=== PATIENT | male | born 1975 | race Hispanic/Latino ===

== ENCOUNTER 2019-10-06 23:45 | Emergency (ER) | payer SELFPAY ==
[~2019-10-06] VITALS: Ht 160 cm; Wt 49.9 kg
[~2019-10-06 23:45] MED LIST: KEFLEX500 MG PO; LEVEMIR100 UNIT/1 SC; METFORMIN HCL500 MG PO; NAPROXEN250 MG PO
[2019-10-06] MEDS ORDERED: KETOROLAC TROMETHAMINE 30 MG/ML VIAL IV STA (23:58)
[2019-10-07] MEDS ORDERED: SODIUM CHLORIDE 0.9% 1000ML 1,000 ML IV ONE
[2019-10-07] MEDS ORDERED: SODIUM CHLORIDE 0.9% 1000ML 1,000 ML ONE (00:05)
[2019-10-07 00:06] LABS: BASOPHILS % 0.2 % (0.0-1.0); EOSINOPHILS # (AUTO) 0.1 (0.0-0.4); EOSINOPHILS % 1.2 % (0.0-6.0); HEMATOCRIT 40.9 % (38.2-49.6); HEMOGLOBIN 15.2 g/dL (14.0-18.0); LYMPHOCYTES # (AUTO) 2.9 (1.0-3.2); LYMPHOCYTES % 29.4 % (18.0-39.1); MEAN CORPUSCULAR HEMOGLOBIN 30.6 pg (28-32); MEAN CORPUSCULAR HGB CONC 37.2 g/dL (31-35); MEAN CORPUSCULAR VOLUME 82.5 fL (81-99); MONOCYTES # (AUTO) 0.8 (0.2-0.8); MONOCYTES % 7.7 % (4.4-11.3); NEUTROPHILS # (AUTO) 6.1 (2.1-6.9); NEUTROPHILS % 61.2 % (38.7-80.0); PLATELET COUNT 251 x10e3/uL (140-360); RED BLOOD COUNT 4.96 x10e6/uL (4.3-5.7)
[2019-10-07] MEDS ORDERED: IOPAMIDOL 370 MG/ML 200 ML INFUS..BTL INJ ONE (00:16)
[2019-10-07] MEDS ORDERED: DIATRIZOATE MEGL/DIATRIZOA SOD 30 ML BTL PO ONE (00:16)
[2019-10-07] MEDS ORDERED: SODIUM CHLORIDE 0.9% 50ML 50 ML ONE (00:16)
[2019-10-07 00:20] LABS: ALANINE AMINOTRANSFERASE 16 IU/L (0-55); ALBUMIN 3.5 g/dL (3.5-5.0); ALBUMIN/GLOBULIN RATIO 1.2 (0.8-2.0); ALKALINE PHOSPHATASE 68 IU/L (40-150); ANION GAP 12.1 mmol/L (8-16); BLOOD UREA NITROGEN 13 mg/dL (7-26); BUN/CREATININE RATIO 15 (6-25); CALCIUM 8.8 mg/dL (8.4-10.2); CARBON DIOXIDE 26 mmol/L (22-29); CHLORIDE 98 mmol/L (98-107); CREATININE, SERUM 0.85 mg/dL (0.72-1.25); EST GLOMERULAR FILTRATION RATE > 60 ML/MIN (60-); POTASSIUM 4.1 mmol/L (3.5-5.1); SODIUM 132 mmol/L (136-145)
[2019-10-07 00:24] LABS: GLUCOSE 419 mg/dL (74-118)
[2019-10-07] MEDS ORDERED: INSULIN REGULAR, HUMAN 100 UNIT/1 ML 3ML VIAL SQ ONE (00:30)
[2019-10-07 00:40] LABS: AMYLASE 82 U/L (25-125); LIPASE 82 U/L (8-78)
[2019-10-07 00:46] LABS: BILIRUBIN,URINE NEGATIVE (NEGATIVE); CLARITY,URINE CLEAR (CLEAR); COLOR,URINE YELLOW (YELLOW); KETONES,URINE 1+ (NEGATIVE); LEUKOCYTE ESTERASE ,URINE NEGATIVE (NEGATIVE); NITRITE,URINE NEGATIVE (NEGATIVE); PROTEIN,URINE DIPSTICK NEGATIVE (NEGATIVE); URINE UROBILINOGEN 0.2 mg/dL (0.2 - 1)
[2019-10-07 00:50] LABS: BACTERIA,URINE FEW /HPF; EPITHELIAL CELLS,URINE FEW /LPF; RBC,URINE 0-5 /HPF (0-5); YEAST,URINE MANY
[2019-10-07] MEDS ORDERED: MORPHINE SULFATE 2 MG/ML SYR 1ML IV STA (01:01)
[2019-10-07] MEDS ORDERED: ONDANSETRON HCL INJ 2MG/ML 2ML 2 MG/ML VIAL IV STA (01:01)
[2019-10-07] MEDS ORDERED: MORPHINE SULFATE INJ 4 MG/ML INJ 1ML ONE (01:08)
--- NOTE | 2019-10-07 01:24 | NUR ---
PT RETURNED TO ER AT THIS TIME. PT IS SITTING UP IN STRETCHER. BED IS LOCKED AND IN LOWEST POSITION. CALL LIGHT IS IN REACH IF IN NEED OF ASSISTANCE.
--- NOTE | 2019-10-07 02:10 | Diagnostic Imaging Report ---
EXAM: CT Abdomen and Pelvis WITH contrast INDICATION: llq pain ^Y COMPARISON: None. TECHNIQUE: Abdomen and pelvis were scanned utilizing a multidetector helical scanner from the lung base to the pubic symphysis after administration of IV contrast. Coronal and sagittal reformations were obtained. Routine protocol was performed. Scan was performed when during portal venous phase. IV CONTRAST: 100 mL of Isovue 370 ORAL CONTRAST: Gastrografin COMPLICATIONS: None RADIATION DOSE: Total DLP: 184 mGy*cm Estimated effective dose: (DLP x 0.015 x size factor) mSv CTDIvol has been reviewed. It is below the limits set by the Radiation Protocol Committee (RPC). Dose modulation, iterative reconstruction, and/or weight based adjustment of the mA/kV was utilized to reduce the radiation dose to as low as reasonably achievable. FINDINGS: LINES and TUBES: None. LOWER THORAX: Unremarkable HEPATOBILIARY: No focal hepatic lesions. No biliary ductal dilation. GALLBLADDER: No radio-opaque stones or sludge. No wall thickening. SPLEEN: No splenomegaly. PANCREAS: No focal masses or ductal dilatation. ADRENALS: No adrenal nodules KIDNEYS/URETERS: Kidneys enhance symmetrically. No hydronephrosis. No cystic or solid mass lesions. No stones. GI TRACT: No abnormal distention, wall thickening, or evidence of bowel obstruction. Appendix is normal. PELVIC ORGANS/BLADDER: Unremarkable. LYMPH NODES: No lymphadenopathy. VESSELS: Unremarkable. PERITONEUM / RETROPERITONEUM: No free air or fluid. BONES: Unremarkable. SOFT TISSUES: Unremarkable. IMPRESSION: No acute CT abnormality in the abdomen or pelvis. Signed by: Marcos Sullivan DO on 10/07/2019 2:06 AM
[2019-10-07 02:21] VITALS: BP 134/100
== END 2019-10-07 02:36 | disposition home or self-care (01) ==
LOC: ER 23:45
DX: R10.32 Left lower quadrant pain (principal); N30.90 Cystitis, unspecified without hematuria; E11.65 Type 2 diabetes mellitus with hyperglycemia; E78.5 Hyperlipidemia, unspecified; D64.9 Anemia, unspecified
CPT/HCPCS: 36415; 74177; 80053; 81001; 82150; 82948; 83690; 85025; 99284; J1885; J2270; J2405; J7030; Q9967

== ENCOUNTER 2019-12-14 21:23 | Emergency (ER) | payer SELFPAY ==
[~2019-12-14] VITALS: Ht 160 cm; Wt 49.9 kg
--- OUTSIDE RECORDS SUMMARY | 2019-12-14 21:25 | XMS REPORT | Clinical Summary ---
Author Author [facility] Organization [facility] Address Unknown Phone Unavailable Care Team Providers Care Java Developer Name Role Phone Moreno Flores MD PCP Allergies Comments Active Allergy Reactions Severity Noted Date Metformin Diarrhea 11/12/2017 Medications End Date Status Medication Sig Dispensed Refills Start Date Active blood glucose Use as 1 Kit 0 meterIndications: DM directed. 0 (diabetes mellitus) Active simvastatin (ZOCOR) 40 mg Take 1 Tab by 30 Tab 2 tabletIndications: mouth at 0 Hyperlipidemia bedtime. For cholesterol Active zolmitriptan (ZOMIG) 5 mg Take 1 Tab by 10 Tab 0 tabletIndications: mouth as 0 Headache(784.0) needed for Migraine. Active PEDOMETERIndications: 1 Device 0 01 Diabetes mellitus type 0 II, controlled, Hyperlipidemia, Obesity, unspecified Active blood glucose meter Use as 1 Kit 0 (PRECISION XTRA directed.. 8 GLUCOMETER)Indications: Poorly controlled type 2 diabetes mellitus Active lancets 28 Use 2 times 100 Each 1 gaugeIndications: Poorly weekly as 8 controlled type 2 directed. diabetes mellitus Active nystatin (MYCOSTATIN) Apply to 30 g 0 10/13 topical creamIndications: affected area 8 Penile lesion 2 times daily. Active blood glucose (PRECISION Check blood 50 Each 3 0 XTRA TEST STRIPS) test glucose 2 8 stripsIndications: Poorly times daily. controlled type 2 diabetes mellitus Active lancets 28 Use 2 times 100 Each 11 gaugeIndications: Type 2 daily as 8 diabetes mellitus with directed. hemoglobin A1c goal to be determined Active INSULIN SYRINGE 0.5mL Use to inject 1 Box 0 30GX5/16" (ULTRA COMFORT) medication 3 8 syringe-needleIndications times daily. : Poorly controlled type Use a new 2 diabetes mellitus syringe each time. Active aspirin 81 mg delayed Take 1 tablet 90 tablet 0 release by mouth 8 tabletIndications: Poorly daily. controlled type 2 diabetes mellitus Active lisinopril (PRINIVIL) 10 Take 1 tablet 90 tablet 1 mg tabletIndications: by mouth 8 Poorly controlled type 2 daily. diabetes mellitus Active INSULIN SYRINGE 0.5mL Use to inject 100 Each 0 30GX5/16" (ULTRA COMFORT) medication 3 8 syringe-needleIndications times daily. : Poorly controlled type Use a new 2 diabetes mellitus syringe each time. Active blood glucose test Use 3 times 100 Each 11 01 stripsIndications: Poorly daily. 8 controlled type 2 diabetes mellitus Active fluocinonide (LIDEX) 0.05 Apply to 120 mL 11 % external affected area 8 solutionIndications: Acne 2 times daily necrotica as needed (rash/itching ) For scalp, allow to air dry. Avoid face, groin, armpits. Active clindamycin (CLEOCIN-T) 1 Apply to 60 mL 0 % external affected area 8 solutionIndications: Acne 2 times daily necrotica Apply to NEW sores; for old sores/scabs, apply vaseline. Active glipiZIDE (GLUCOTROL) 5 Take 2 360 tablet 1 mg tabletIndications: tablets by 0 Poorly controlled type 2 mouth 2 times diabetes mellitus daily (before meals). Active linaGLIPtin (TRADJENTA) 5 Take 1 tablet 90 tablet 1 mg tabletIndications: by mouth 0 Inadequately controlled daily. diabetes mellitus 05/01/2020 Active insulin detemir U-100 Inject 45 27 Pen 1 10/13 (LEVEMIR FLEXTOUCH) 100 units under 0 unit/mL (3 mL) the skin PenIndications: Poorly every morning controlled type 2 and 45 units diabetes mellitus every evening. Active insulin REGULAR 100 Inject 15 30 mL 0 unit/mL Units under 0 injectionIndications: the skin 2 Poorly controlled type 2 times daily diabetes mellitus (before meals). Active pen needle, diabetic 31 Inject under 1 Box 0 0 gauge x 3/16" the skin 0 needlesIndications: daily. Poorly controlled type 2 diabetes mellitus Active dicyclomine (BENTYL) 20 Take 20 mg by 0 mg tablet mouth 4 times daily. Active metoclopramide (REGLAN) Take 10 mg by 0 10 mg tablet mouth 4 times daily. Active blood glucose test 1 Each 3 100 Each 6 02 stripsIndications: Poorly times daily 0 controlled type 2 Use as diabetes mellitus directed.. Active ketoconazole (NIZORAL) 2 Apply to 120 mL 11 0 % shampooIndications: scalp in 0 Acne necrotica shower. Lather. Leave in for 5 minutes. Rinse out. Lather dove conditioner.. (3 times a week) 11/03/2019 Discontinued (Reorder) pen needle, diabetic Inject under 1 Box 0 02/13 (TRUEPLUS PEN NEEDLE) 31 the skin 8 gauge x 3/16" daily. needlesIndications: Poorly controlled type 2 diabetes mellitus 11/03/2019 Discontinued (Reorder) insulin REGULAR 100 Inject 15 30 mL 0 unit/mL Units under 8 injectionIndications: the skin 2 Poorly controlled type 2 times daily diabetes mellitus (before meals). 11/03/2019 Discontinued (Reorder) blood glucose test 1 Each 3 100 Each 6 stripsIndications: Poorly times daily 8 controlled type 2 Use as diabetes mellitus directed.. 11/03/2019 Discontinued (Reorder) ketoconazole (NIZORAL) 2 Apply to 120 mL 11 1 % shampooIndications: scalp in 8 Acne necrotica shower. Lather. Leave in for 5 minutes. Rinse out. Lather dove conditioner.. (3 times a week) 11/03/2019 Discontinued (Reorder) linagliptin (TRADJENTA) 5 Take 1 tablet 90 tablet 1 mg tabletIndications: by mouth 9 Inadequately controlled daily. diabetes mellitus 11/03/2019 Discontinued (Reorder) insulin detemir U-100 Inject 45 3 Month 1 07/14 (LEVEMIR FLEXTOUCH) 100 units under Supply 9 unit/mL (3 mL) the skin PenIndications: Poorly every morning controlled type 2 and 45 units diabetes mellitus every evening. 11/03/2019 Discontinued (Reorder) glipiZIDE (GLUCOTROL) 5 Take 2 360 tablet 1 mg tabletIndications: tablets by 9 Poorly controlled type 2 mouth 2 times diabetes mellitus daily (before meals). 11/03/2019 tropicamide (MYDRIACYL) Instill 1 15 mL 0 0.5 % ophthalmic Drop in each 0 solutionIndications: eye once as Poorly controlled type 2 needed for up diabetes mellitus to 1 dose (for poor retina scan image). Active Problems Problem Noted Date Inadequately controlled diabetes mellitus 04/28/2018 DMII Hyperlipidemia LLQ abdominal pain Encounters Care Team Description Date Type Specialty Moreno Flores MD Patient left without being seen (Primary Dx) 11/24/2019 Telephonic Family Practice Encounter Moreno Flores MD Poorly controlled type [address] [facility] (Primary Dx); Abdominal pain, unspecified abdominal location; Inadequately controlled diabetes mellitus 11/03/2019 Telephonic Family Practice Encounter Moreno Flores MD Acne necrotica 11/03/2019 Refill Family Practice Moreno Flores MD Poorly controlled type 2 diabetes [facility] 11/03/2019 Refill Family Practice Juan Luis Pérez MD Generalized abdominal pain (Primary Dx); LLQ abdominal pain; Strain of abdominal wall, initial encounter; Hyperglycemia 09/20/2019 Emergency Emergency Medicine after 12/13/2018 Immunizations Name Administration Dates Next Due Influenza Vaccine 05/23/2010 Influenza, 08/25/2018 (Deferred: Patie nt Refused) Vaccine<FLUCELVAX>(Multi- Dose) PPV 23 Pneumococcal 05/23/2010 Polysaccaride Td Tetanus, diphtheria 03/23/2009 Toxoids Vaccine Family History Medical History Relation Name Comments Hypertension Maternal Grandfather Psychiatry Maternal Grandfather Arthritis Maternal Grandmother Hypertension Maternal Grandmother Relation Name Status Comments Brother Alive 3 brothers Brother Alive Brother Alive Brother Alive Daughter Alive Father Alive Maternal Grandfather Alive Maternal Grandmother Alive Mother Alive Paternal Grandfather Paternal Grandmother Sister Alive 1 sister Son Alive Social History Date Tobacco Use Types Packs/Day Years Used Current Every Day Smoker Smokeless Tobacco: Never Used Tobacco Cessation: Counseling Given: No Drinks/Week oz/Week Comments Alcohol Use No Food Insecurity Answer Date Recorded Within the past 12 months, you worried that your Never joyce e 11/07/2017 food would run out before you got money to buy more. Within the past 12 months, the food you bought Never true 11/07/2017 just didn't last and you didn't have mo tonia to get more. Sex Assigned at Date Recorded Not on file Industry Job Start Date Occupation Not on file Not on file Not on file Travel End Travel History Travel Start No recent travel history available. Date Recorded COVID-19 Exposure Response 11/18/2019 1:52 PM CDT In the last month, have you been in contact with No / Unsure someone who was confirmed or suspected to have Coronavirus / COVID-19? Last Filed Vital Signs Reading Time Taken Comments Vital Sign 119/87 09/20/2019 10:52 AM CDT Blood Pressure 85 09/20/2019 10:52 AM CDT Pulse 36.8 C (98.2 F) 09/20/2019 10:52 AM CDT Temperature 18 09/20/2019 10:52 AM CDT Respiratory Rate 100% 09/20/2019 10:52 AM CDT Oxygen Saturation - - Inhaled Oxygen Concentration 50.5 kg (111 lb 5 oz) 09/20/2019 9:20 AM CDT Weight 160 cm (5' 3") 09/20/2019 9:20 AM CDT Height 19.72 09/20/2019 9:20 AM CDT Body Mass Index Plan of Treatment Care Team Description Date Type Specialty Moreno Flores MD [address] [place] [address]. [place] [address] [phone] in clinic visit needed 12/15/2019 Office Visit Family Practice Health Maintenance Due Date Last Done Comments DM Retinal Exam (Yearly) 11/21/2018 11/21/2017 DM Foot Exam (Yearly) 12/22/2018 12/22/2017, 12/12 IMM Influenza Seasonal 04/13/2020 Oct to September (>/= 19 yrs) DM HGBA1C (Yearly) 11/03/2020 11/04/2019, 018, 05/04/2018, Additional history exists Goals Goal Patient Associated Recent Progress Patient-Stat Aut hor Goal Type Problems ed? Eat Healthy Lifestyle No Obrien, Joaquin Shalonda, big data admin Comments Procedure Name Priority Date/Time Associated Diag nosis HEPATITIS PANEL Routine 11/04/2019 Abdominal pain , 11:49 AM CDT unspecified abdominal location HIV-1/HIV-2 ROUTINE Routine 11/04/2019 Abdominal pain, SCREENING 11:49 AM CDT unspecified abdomin al location HEMOGLOBIN A1C Routine 11/04/2019 Poorly controll ed type 2 11:49 AM CDT diabetes mellitus Abdominal pain, unspecified abdominal location LIPID PROFILE Routine 11/04/2019 Poorly controll ed type 2 11:49 AM CDT diabetes mellitus Abdominal pain, unspecified abdominal location BASIC METABOLIC PANEL Routine 11/04/2019 Poorly c ontrolled type 2 11:49 AM CDT diabetes mellitus Abdominal pain, unspecified abdominal location LIVER PROFILE Routine 11/04/2019 Poorly controll ed type 2 11:49 AM CDT diabetes mellitus Abdominal pain, unspecified abdominal location CT ABDOMEN AND PELVIS STAT 09/20/2019 Generali zed abdominal CONTRAST 12:12 PM CDT pain CBC STAT 09/20/2019 11:13 AM CDT CBC/DIFF STAT 09/20/2019 11:13 AM CDT LIPASE STAT 09/20/2019 10:48 AM CDT LIVER PROFILE STAT 09/20/2019 10:48 AM CDT CREATININE POC Routine 09/20/2019 10:42 AM CDT BMP POC Routine 09/20/2019 10:38 AM CDT after 12/13/2018 Results * HIV-1/HIV-2 Routine Screening (11/04/2019 11:49 AM CDT) HIV-1/HIV-2 Negative Negative [facility] Specimen Blood Performing Organization Address City/State/Zipcode Ph one Number [facility] [address] [place] [address] * Hemoglobin A1C (11/04/2019 11:49 AM CDT) Hemoglobin A1c 12.2 (H) 4.3 - 6.1 % [facility] Estimated 303 (H) 70 - 110 mg/dL [facility] Average Glucose [facility] Specimen Blood Performing Organization Address [facility] one Number [facility] [address] [place] [address] * Liver Profile (11/04/2019 11:49 AM CDT) Only the most recent of 2 results within the time period is included. Total Protein 6.8 6.0 - 8.3 g/dL [facility] Bilirubin, 0.7 0.2 - 1.2 mg/dL [facility] Total [facility] Alkaline 67 34 - 104 U/L [facility] Phosphatase [facility] AST 13 13 - 39 U/L [facility] Direct 0.1 0.0 - 0.2 mg/dL [facility] Bilirubin [facility] ALT 13 7 - 52 U/L [facility] Albumin 4.4 4.2 - 5.5 g/dL [facility] Specimen Blood Performing Organization Address [facility] one Number [facility] [address] [place] [address] * Lipid Profile (11/04/2019 11:49 AM CDT) Cholesterol 241.0 (H) <=200.0 mg/dL [facility] Triglyceride 142 <150 mg/dL [facility] HDL 51.0 See Reference Range [facility] Narrative. mg/dL [facility]ATORY LDL 162 (H) <100 mg/dL [facility] Comment: [facility] Optimal: < 100.0 mg/dL Near Optimal: 120-129 mg/dL Borderline: 130-159 mg/dL High: 160-189 mg/dL Very High: >=190 mg/dL Patient No [facility] Fasting? LABORAT[facility] Specimen Blood Narrative Performed At Patient is not fasting. For a triglyceride result gre ater than 440 mg/dL, [facility] consider re-testing when the patient is in a fasting state. Performing Organization Address [facility] one Number [facility] [address] [place] [address] * Hepatitis Panel (11/04/2019 11:49 AM CDT) Hep C Vir Ab Negative Negative [facility] IgG [facility] Hep B Surface Negative Negative [facility] Ag [facility] Hep A Vir Ab Negative Negative [facility] IgM [facility] Hep B Core Ab Negative Negative [facility] IgM [facility] Specimen Blood Performing Organization Address [facility] one Number [facility] [address] [place] [address] * Basic Metabolic Panel (11/04/2019 11:49 AM CDT) Sodium 135 (L) 136 - 145 mmol/L [facility] Potassium 3.9 3.5 - 5.1 mmol/L [facility] Chloride 95 (L) 98 - 107 mmol/L [facility] CO2 31 21 - 31 mmol/L [facility] Urea Nitrogen 12.0 7.0 - 25.0 mg/dL [facility] Creatinine 0.5 (L) 0.7 - 1.3 mg/dL [facility] Glucose 284 (H) 70 - 110 mg/dL [facility] Calcium 10.2 8.6 - 10.3 mg/dL [facility] GFR, Estimated >90 >=90 mL/min/1.73 m2 [facility] Anion Gap 9 5 - 16 mmol/L [facility] Specimen Blood Performing Organization Address [facility] one Number [facility] [address] [place] [address] * CT ABDOMEN AND PELVIS CONTRAST (09/20/2019 12:12 PM CDT) Specimen Impressions Performed At IMPRESSION: [facility] No acute CT finding. Signed By: Misael Daniel MD, 09/20/2019 12:43 PM Narrative Performed At TECHNIQUE: [facility] CT of the abdomen and pelvis WITH intra venous contrast. The abdomen and pelvis were scanned utilizing a multide tector helical scanner from the diaphragm to the lesser trochanter afte r the IV administration of 100 cc of omnipaque 300 and the oral administr ation of none. Coronal and sagittal reformations were obtained. COMPARISON: None available. INDICATION: Abdominal pain DISCUSSION: LOWER THORAX: Normal. HEPATOBILIARY: No focal hepatic lesions . No biliary ductal dilatation. SPLEEN: No splenomegaly. PANCREAS: No focal masses or ductal dil atation. ADRENALS: No adrenal nodules. KIDNEYS/URETERS: No hydronephrosis, sto reilly, or solid mass lesions. PELVIC ORGANS/BLADDER: Unremarkable. PERITONEUM / RETROPERITONEUM: No free a ir or fluid. LYMPH NODES: No lymphadenopathy. VESSELS: Unremarkable. GI TRACT: No distention or wall thicken ing. The appendix is normal. BONES AND SOFT TISSUES: Unremarkable. Procedure Note Interface, Rad/Mammog In - 09/20/2019 12:48 PM CDT TECHNIQUE: CT of the abdomen and pelvis WITH intravenous contrast. The abdomen and pelvis were scanned utilizing a multidetector helical scanner from the diaphragm to the lesser trochanter after the IV administration of 100 cc of omnipaque 300 and the oral administration of none. Coronal and sagittal reformations were obtained. COMPARISON: None available. INDICATION: Abdominal pain DISCUSSION: LOWER THORAX: Normal. HEPATOBILIARY: No focal hepatic lesions. No biliary ductal dilatation. SPLEEN: No splenomegaly. PANCREAS: No focal masses or ductal dilatation. ADRENALS: No adrenal nodules. KIDNEYS/URETERS: No hydronephrosis, stones, or solid mass lesions. PELVIC ORGANS/BLADDER: Unremarkable. PERITONEUM / RETROPERITONEUM: No free air or fluid. LYMPH NODES: No lymphadenopathy. VESSELS: Unremarkable. GI TRACT: No distention or wall thickening. The appendix is normal. BONES AND SOFT TISSUES: Unremarkable. IMPRESSION IMPRESSION: No acute CT finding. Signed By: Misael Dainel MD, 09/20/2019 12:43 PM Performing Organization Address City/State/Zipcode Ph one Number SMS * CBC/Diff (09/20/2019 11:13 AM CDT) WBC 9.3 4.5 - 12.0 K/uL [facility] RBC 5.11 4.60 - 6.20 M/uL [facility] Hemoglobin 15.5 14.0 - 18.0 g/dL [facility] Hematocrit 43.0 40.0 - 54.0 % [facility] MCV 84.1 82.0 - 92.0 fL [facility] MCH 30.3 27.0 - 31.0 pg [facility] MCHC 36.0 32.0 - 36.0 g/dL [facility] RDW 36.5 35.1 - 43.9 fL [facility] Platelet 229 150 - 400 K/uL [facility] Mean Platelet 10.8 9.4 - 12.4 fL [facility] Volume [facility] Percent NRBC 0.0 % [facility] Neutrophil 68.5 (H) 34.0 - 67.9 % [facility] Lymphs 26.2 21.8 - 50.0 % [facility] Monocytes 4.6 (L) 5.3 - 12.0 % [facility] Eos 0.2 (L) 0.8 - 5.0 % [facility] Basos 0.2 0.2 - 1.2 % [facility] Immature 0.3 0.0 - 0.5 % [facility] Granulocytes [facility] Neutrophils 6.36 (H) 1.78 - 5.36 K/uL [facility] (Absolute) LABOR[facility]ORY Lymphs 2.44 1.32 - 3.57 K/uL [facility] (Absolute) [facility] Monocytes(Absol 0.43 0.30 - 0.82 K/uL [facility] mesha) LABORATORY Eos (Absolute) 0.02 (L) 0.04 - 0.54 K/uL [facility] Baso (Absolute) 0.02 0.01 - 0.08 K/uL [facility] Immature Grans 0.03 0.00 - 0.03 K/uL [facility] (Abs) [facility] Absolute NRBC 0.00 K/uL [facility] Specimen Blood Performing Organization Address [facility] one Number [facility] [address] [place] [address] [phone] * Lipase (09/20/2019 10:48 AM CDT) Pathologist [facility] Lipase 16 11 - 82 U/L [facility] Specimen Blood Performing Organization Address [facility] one Number [facility] [address] [place] [address] * POCT CREATININE POC docked device (09/20/2019 10:42 AM CDT) Creatinine POC 0.4 (L)Comment: Physician 0.6 - 1.3 mg/dL [facility] Notified [facility] GFR, Estimated >90 >=90 mL/min/1.73 m2 [facility] Specimen Blood, venous Performing Organization Address [facility]/Zipcode Ph one Number [facility] [address] [place] [address] * POCT BMP POC docked device (09/20/2019 10:38 AM CDT) Sodium POC 134 (L) 136 - 145 mmol/L [facility] Potassium POC 3.9 3.5 - 5.1 mmol/L [facility] Chloride POC 96 (L) 98 - 107 mmol/L [facility] TCO2 POC 29Comment: Physician Notified 21 - 32 mmol/L [facility] Urea Nitrogen 12 7 - 18 mg/dL [facility] POC [facility] Glucose POC 292 (H) 74 - 106 mg/dL [facility] Hemoglobin POC 15.6 12 - 16 g/dL [facility] Hematocrit POC 46.0 37.0 - 47.0 % [facility] Specimen Blood, venous Performing Organization Address City/State/Zipcode Ph one Number [facility] [address] [place] [address] [phone] after 12/13/2018 Insurance Type Payer Benefit Subscriber ID Effective Phone Address Plan / Dates Group [facility] xxxxxx 2019-3 [id number] [address] [employer] / [id number] [address] [place], [place] [phone] [facility] [employer] [employer] xxxxxx 2019-3 [address] / [place] [address]
--- OUTSIDE RECORDS SUMMARY | 2019-12-14 21:26 | XMS REPORT | Continuity of Care Document ---
Author Author [facility] t Organization [facility] Address [address] [place] [address] Phone Unavailable Care Team Providers Care Jira Developer Name Role Phone NO, PCP PCP Unavailable Mark JENKINS, T Moreno Attphys Nilson CERDA Attphys Unavailable Elisa JENKINS, R Juan Luis Attphys Payers Payer Name Policy Type Policy Number Effective Date Expiration Date S [facility] [employer] [place] FAMI LY PLANNING [id number] [address], [place] [address] xxxxxx 2019 00:00:00 2020 23:59:59 Miguel [facility] PLANFINANCIAL ASSISTANCE PROGRAMxxx [id number] [place] [address] xxxxxx 2019 00:00:00 10-10 23:59:59 [facility] Self Pay [facility] Problems Condition Name Condition Details Condition Category Status Onset Date Resolution Date Last Treatment Date Treating Clinician Comments Source Scalp cyst Scalp cyst Problem Active C HI [facility] DMII DMII Disease Active [facility] alth Hyperlipidemia Hyperlipidemia Disease Active [facility] LLQ abdominal pain LLQ abdominal pain Disease Active [facility] Allergies, Adverse Reactions, Alerts Allergy Name Allergy Type Status Severity Reaction(s) Onset Date Inacti ve Date Treating Clinician Comments Source No Known Allergies DA Active U 2019-11-30 00:00:00 [facility] metformin DA Active U 2019-11-30 00:00:00 [facility] No Known Allergies DA Active U 2019-11-22 00:00:00 [facility] Metformin Allergy to Substance Active Moderate constipation 10-05 00:00:00 [facility] No Known Allergies DA Active U 2018-08-09 00:00:00 [facility] No Known Allergies DA Active U 2018-04-23 00:00:00 [facility] No Known Allergies DA Active U 2018-03-25 00:00:00 [facility] No Known Allergies DA Active U 2017-11-29 00:00:00 [facility] Metformin Propensity to adverse reactions to drug Active Diarrhea 2017-11-12 00:00:00 [facility] Family History Family Member Diagnosis Comments Start Date Stop Date Source Maternal grandfather Hypertension [facility] Maternal grandfather Psychiatry [facility] Maternal grandmother Arthritis [facility] Maternal grandmother Hypertension [facility] Social History Social Habit Start Date Stop Date Quantity Comments Source Sex Assigned [facility] Exposure to SARS-CoV-2 (event) Not sure [facility] Alcohol intake 2019-11-03 00:00:00 2019-11-03 00:00:00 [facility] History SDOH Food Worry 2017-11-07 00:00:00 2017-11-07 00:00:00 1 [facility] SDOH Food Scarcity 2017-11-07 00:00:00 2017-11-07 00:00:00 1 [facility] Smoking Status Start Date Stop Date Source Current every day smoker 2019-11-03 00:00:00 [facility] Medications Ordered Medication Name Filled Medication Name Start Date Stop Da te Current Medication? Ordering Clinician Indication Dosage Frequency Signature (SIG) Comments Components Source dicyclomine (BENTYL) 20 mg tablet 2019-11-24 11:35:13 Yes 20mg Take 20 mg by mouth 4 times daily. [facility] metoclopramide (REGLAN) 10 mg tablet 2019-11-24 11:35:13 Ye s 10mg Take 10 mg by mouth 4 times daily. [facility] blood glucose test strips 2019-11-04 00:00:00 Yes Poorly controlled type 2 diabetes mellitus 1{each} 1 Each 3 times daily Use as directed.. [facility] ketoconazole (NIZORAL) 2 % shampoo 2019-11-04 00:00:00 Y es Acne necrotica Apply to scalp in shower. La ther. Leave in for 5 minutes. Rinse out. Lather dove conditioner.. (3 times a week) [facility] glipiZIDE (GLUCOTROL) 5 mg tablet 2019-11-03 00:00:00 Yes Poorly controlled type 2 diabetes mellitus 10mg Q.5D Take 2 tablets by mouth 2 times daily (before meals). [facility] linaGLIPtin (TRADJENTA) 5 mg tablet 2019-11-03 00:00:00 Yes Inadequately controlled diabetes mellitus 5mg QD Take 1 tablet by mouth daily. [facility] insulin REGULAR 100 unit/mL injection 2019-11-03 00:00:00 Yes Poorly controlled type 2 diabetes mellitus 15U Q.5D Inje ct 15 Units under the skin 2 times daily (before meals). [facility] corona pen needle, diabetic 31 gauge x 3/16" needles 2019-11-03 00: 00:00 Yes Poorly controlled type 2 diabetes mellitus QD Inject unde r the skin daily. [facility] insulin detemir U-100 (LEVEMIR FLEXTOUCH) 100 unit/mL (3 mL) Pen 2019-11-03 00:00:00 2020-05-01 23:59:00 Yes Poorly controlled type 2 di abetes mellitus Inject 45 units under the skin every morning and 45 units ever y evening. [facility] tropicamide (MYDRIACYL) 0.5 % ophthalmic solution 2019-11-03 00:00:00 2019-11-03 23:59:00 No Poorly controlled type 2 diabetes gloria itus 1[drp] Instill 1 Drop in each eye once as needed for up to 1 dose (for poor retina scan image). [facility] glipiZIDE (GLUCOTROL) 5 mg tablet 2018-08-25 00:00:00 2019 00:00:00 No Poorly controlled type 2 diabetes mellitus 10mg Q.5D Take 2 tablets by mouth 2 times daily (before meals). [facility] linagli[facility] (TRADJENTA) 5 mg tablet 2018-07-30 00:00:0 0 2019-11-03 00:00:00 No Inadequately controlled diabetes mellitus 5mg QD Take 1 tablet by mouth daily. [facility] insulin detemir U-100 (LEVEMIR FLEXTOUCH) 100 unit/mL (3 mL) Pen 2018-07-30 00:00:00 2019-11-03 00:00:00 No Poorly controlled type 2 di abetes mellitus Inject 45 units under the skin every morning and 45 units ever y evening. [facility] fluocinonide (LIDEX) 0.05 % external solution 2018-06-09 00: 00:00 Yes Acne necrotica Apply to affected ar ea 2 times daily as needed (rash/itching) For scalp, allow to air dry. Avoid face, groin, armpits. [facility] clindamycin (CLEOCIN-T) 1 % external solution 2018-06-09 00: 00:00 Yes Acne necrotica Q.5D Apply to affected ar ea 2 times daily Apply to NEW sores; for old sores/scabs, apply vaseline. [facility] ketoconazole (NIZORAL) 2 % shampoo 2018-06-09 00:00:00 202 00:00:00 No Acne necrotica Apply to scalp i n shower. Lather. Leave in for 5 minutes. Rinse out. Lather dove conditioner.. (3 times a week) [facility] insulin REGULAR 100 unit/mL injection 2018-04-28 00:00 :00 2019-11-03 00:00:00 No Poorly controlled type 2 diabetes mellitus 15U Q.5D Inject 15 Units under the skin 2 times daily (before meals). [facility] blood glucose test strips 2018-04-28 00:00:00 2019-11-03 00: 00:00 No Poorly controlled type 2 diabetes mellitus 1{each} 1 Ea ch 3 times daily Use as directed.. [facility] blood glucose test strips 2018-03-17 00:00:00 Yes Poorly controlled type 2 diabetes mellitus Use 3 times daily. [facility] pen needle, diabetic (TRUEPLUS PEN NEEDLE) 31 gauge x 3/16" needles 2018-03-12 00:00:00 2019-11-03 00:00:00 No Poorly controlled type 2 di abetes mellitus QD Inject under the skin daily. [facility] INSULIN SYRINGE 0.5mL 30GX5/16" (ULTRA COMFORT) syringe-need le 2017-12-22 00:00:00 Yes Poorly controlled type 2 diabetes mellit us Use to inject medication 3 times daily. Use a new syringe each time. [facility] aspirin 81 mg delayed release tablet 2017-12-22 00:00:00 Yes Poorly controlled type 2 diabetes mellitus 81mg QD Take 1 tablet by mouth daily. [facility] lisinopril (PRINIVIL) 10 mg tablet 2017-12-22 00:00:00 Yes Poorly controlled type 2 diabetes mellitus 10mg QD Take 1 tablet by mouth daily. [facility] INSULIN SYRINGE 0.5mL 30GX5/16" (ULTRA COMFORT) syringe-need le 2017-12-22 00:00:00 Yes Poorly controlled type 2 diabetes mellit us Use to inject medication 3 times daily. Use a new syringe each time. [facility] blood glucose meter (PRECISION XTRA GLUCOMETER) 2017-11-07 0 0:00:00 Yes Poorly controlled type 2 diabetes mellitus Use as directed .. [facility] lancets 28 gauge 2017-11-07 00:00:00 Yes Poorly controlled type 2 diabetes mellitus Use 2 times weekly as directed. [facility] nystatin (MYCOSTATIN) topical cream 2017-11-07 00:00:00 Yes Penile lesion Q.5D Apply to affected area 2 times daily. [facility] blood glucose (PRECISION XTRA TEST STRIPS) test strips 2017-11-07 00:00:00 Yes Poorly controlled type 2 diabetes mellitus Q.5D Check blood glucose 2 times daily. [facility] lancets 28 gauge 2017-11-07 00:00:00 Yes Type 2 diabetes mellitus with hemoglobin A1c goal to be determined 100{each} Q.5D Use 2 times daily as directed. [facility] simvastatin (ZOCOR) 40 mg tablet 2010-05-23 00:00:00 Yes Hyperlipidemia 40mg Take 1 Tab by mouth at bedtime. For cholesterol [facility] zolmitriptan (ZOMIG) 5 mg tablet 2010-05-23 00:00:00 Yes Headache(784.0) 5mg Take 1 Tab by mouth as needed for Migraine. [facility] PEDOMETER 2010-05-23 00:00:00 Yes Obesity, unspecified [facility] blood glucose meter 2010-03-23 00:00:00 Yes DM (d iabetes mellitus) Use as directed. [facility] Cephalexin Monohydrate (Keflex) 500 Mg Capsule Cephale young Monohydrate (Keflex) 500 Mg Capsule Yes 500 Every 6 Hours [facility] Insulin Detemir (Levemir) 100 Unit/1 Ml Vial Insulin D etemir (Levemir) 100 Unit/1 Ml Vial Yes 15 Twice A Day [facility] Naproxen 250 Mg Tablet Naproxen 250 Mg Tablet Yes 500 Twice A Day as needed for Pain [facility] Metformin Hcl 500 Mg Tablet, 500 Mg Oral Metformin Hcl 500 Mg Tablet, 500 Mg Oral 2019-10-07 00:00:00 No 500 Twice A Day [facility] Immunizations Ordered Immunization Name Filled Immunization Name Date Status Comments Source Influenza Vaccine 2010-05-23 00:00:00 Completed [facility] PPV 23 Pneumococcal Polysaccaride 2010-05-23 00:00:00 Comp leted [facility] Td Tetanus, diphtheria Toxoids Vaccine 2009-03-23 00:00:00 Completed [facility] Vital Signs Vital Name Observation Time Observation Value Comments Source Systolic blood pressure 2019-09-20 10:52:00 119 mm[Hg] [facility] Diastolic blood pressure 2019-09-20 10:52:00 87 mm[Hg] [facility] Heart rate 2019-09-20 10:52:00 85 /min [facility] Body temperature 2019-09-20 10:52:00 36.78 Niya [facility] Respiratory rate 2019-09-20 10:52:00 18 /min [facility] Oxygen saturation in Arterial blood by Pulse oximetry 09-19 10:52:00 100 /min [facility] Body height 2019-09-20 09:20:00 160 cm [facility] Body weight 2019-09-20 09:20:00 50.491 kg [facility] BMI 2019-09-20 09:20:00 19.72 kg/m2 [facility] Procedures Procedure Date / Time Performed Performing Clinician [facility] e LIVER PROFILE 2019-11-04 16:49:00 Moreno Flores Mandie [facility] BASIC METABOLIC PANEL 2019-11-04 16:49:[address] [facility] LIPID PROFILE 2019-11-04 16:49:00 MarkSkylertrevor Raza [facility] HEMOGLOBIN A1C 2019-11-04 16:49:00 MarkDarynMoreno T [facility] HIV-1/HIV-2 ROUTINE SCREENING 2019-11-04 16:49:00 MarkHemanth Mandie [facility] HEPATITIS PANEL 2019-11-04 16:49:00 [facility] Computed tomography of abdomen and pelvis with contrast 2019 00:00:00 ANSON CERDA [facility] CT ABDOMEN AND PELVIS CONTRAST 2019-09-20 17:12:00 Kaitlynn Pierce [facility] CBC/DIFF 2019-09-20 16:13:00 Gloria Pierce [facility] CBC 2019-09-20 16:13:00 Gloria Pierce [facility] LIVER PROFILE 2019-09-20 15:48:00 [facility] LIPASE 2019-09-20 15:48:00 Gloria Pierce [facility] CREATININE POC 2019-09-20 15:42:00 Juan Luis Pérez h BMP POC 2019-09-20 15:38:00 Juan Luis Pérez h Plan of Care Planned Activity Planned Date Details Comments Source Future Scheduled Test 2020-11-03 00:00:00 DM HGBA1C (Yearly) [code = DM HGBA1C (Yearly)] [facility] Scheduled Test 2020-04-13 00:00:00 IMM Influenza Seas onal Apr to September (>/= 19 yrs) [code = IMM Influenza Seasonal Apr to September (>/= 19 yrs)] [facility] Scheduled Test 2018-12-22 00:00:00 DM Foot Exam (Year ly) [code = DM Foot Exam (Yearly)] [facility] Scheduled Test 2018-11-21 00:00:00 DM Retinal Exam (Y early) [code = DM Retinal Exam (Yearly)] [facility] Encounters Start Date/Time End Date/Time Encounter Type Admission Type Att[facility] Care Department Encounter ID Source 2019-10-06 23:45:00 2019-10-07 02:36:00 Departed Emergency Room 1 ANSON CERDA [facility] [id number] [facility] 2018-09-22 00:00:00 2018-09-22 00:00:00 Outpatient [facility] [id number] [facility] 2018-09-01 00:00:00 2018-09-01 00:00:00 Outpatient [facility] [id number] [facility] 2018-08-27 00:00:00 2018-08-27 00:00:00 Outpatient [facility] [id number] [facility] 2018-08-25 15:47:23 2018-08-25 15:47:23 Outpatient [facility] [id number] [facility] 2018-07-30 15:39:17 2018-07-30 15:39:17 Outpatient [facility] [id number] [facility] 2018-07-22 00:00:00 2018-07-22 00:00:00 Outpatient [facility] [id number] [facility] 2018-07-13 08:43:52 2018-07-13 08:43:52 Outpatient [facility] [id number] [facility] 2018-07-03 00:00:00 2018-07-03 00:00:00 Outpatient [facility] [id number] [facility] 2018-06-09 13:02:49 2018-06-09 13:02:49 Outpatient [facility] [id number] [facility] 2018-05-26 00:00:00 2018-05-26 00:00:00 Outpatient [facility] [id number] [facility] 2018-05-07 09:38:29 2018-05-07 09:38:29 Outpatient [facility] [id number] [facility] 2018-05-05 00:00:00 2018-05-05 00:00:00 Outpatient [facility] [id number] [facility] 2018-05-04 14:01:55 2018-05-04 14:01:55 Outpatient [facility] [id number] [facility] 2018-04-28 08:14:08 2018-04-28 08:14:08 Outpatient [facility] [id number] [facility] 2018-04-10 00:00:00 2018-04-10 00:00:00 Outpatient [facility] [id number] [facility] 2018-03-12 07:55:15 2018-03-12 07:55:15 Outpatient [facility] [id number] [facility] 2018-03-12 00:00:00 2018-03-12 00:00:00 Outpatient [facility] [id number] [facility] 2018-03-09 00:00:00 2018-03-09 00:00:00 Outpatient [facility] [id number] [facility] 2018-02-23 00:00:00 2018-02-23 00:00:00 Outpatient [facility] [id number] [facility] 2018-02-18 00:00:00 2018-02-18 00:00:00 Outpatient [facility] [id number] [facility] 2018-02-13 00:00:00 2018-02-13 00:00:00 Outpatient [facility] [id number] [facility] 2017-12-30 00:00:00 2017-12-30 00:00:00 Outpatient [facility] [id number] [facility] 2017-12-22 15:14:10 2017-12-22 15:14:10 Outpatient [facility] [id number] [facility] 2017-12-12 12:23:33 2017-12-12 12:23:33 Outpatient [facility] [id number] [facility] 2017-11-21 09:53:02 2017-11-21 09:53:02 Outpatient [facility] [id number] [facility] 2017-11-12 14:24:43 2017-11-12 14:24:43 Outpatient [facility] [id number] [facility] 2017-11-07 14:39:00 2017-11-07 14:39:00 Outpatient [facility] [id number] [facility] 2017-11-07 14:10:18 2017-11-07 14:10:18 Outpatient [facility] [id number] [facility] Results Test Description Test Time Test Comments Results Result Comments Source BASIC METABOLIC PANEL 2019-12-08 20:08:00 Test Item SODIUM (test code = NA) 138 mmol/L 136-145 N POTASSIUM (test code = K) 4.2 mmol/L 3.5-5.1 N CHLORIDE (test code = CL) 100.0 mmol/L 98-107 N CARBON DIOXIDE (test code = CO2) 29.0 mmol/L 21-32 N ANION GAP (test code = GAP) 13.2 10-20 N GLUCOSE (test code = GLU) 268 mg/dL 74-106 H BLOOD UREA NITROGEN (test code = BUN) 15 mg/dL 7-18 N GLOMERULAR FILTRATION RATE (test code = GFR) > 60 mL/min >=60 Estimated GFR by using Modified MDRD formula.Chronic kidney disease is defined as either kidney damageor GFR <60 mL/min/1.73 m2 for >3 months. CREATININE (test code = CREAT) 0.80 mg/dL 0.7-1.3 N BUN/CREATININE RATIO (test code = BUN/CREA) 19.9 10-20 N CALCIUM (test code = CA) 9.5 mg/dL 8.5-10.1 N HEPATIC FUNCTION [id number] 20:08:00* Test Item Value Reference Range Interpretation Comments TOTAL PROTEIN (test code = PROT) 7.7 gram/dL 6.4-8.2 N ALBUMIN (test code = ALB) 3.9 g/dL 3.4-5.0 N GLOBULIN (test code = GLOB) 3.8 gram/dL 2.7-4.2 N ALBUMIN/GLOBULIN RATIO (test code = A/G) 1.0 0.75-1.50 N BILIRUBIN TOTAL (test code = BILT) 0.60 mg/dL 0.0-1.0 N BILIRUBIN DIRECT (test code = BILD) 0.20 mg/dL 0.0-0.20 N SGOT/AST (test code = AST) 9 IUnit/L 15-37 L SGPT/ALT (test code = ALT) 18 IUnit/L 12-78 N ALKALINE PHOSPHATASE TOTAL (test code = ALKP) 83 IUnit/L 45-117 N Note change in reference range due to change in reagent. [id number] 20:08:00* Test Item Value Reference Range Interpretation Comments LIPASE (test code = LIP) 133 U/L 73.0-393.0 N CBC W/O [id number] 19:59:00* Test Item Value Reference Range Interpretation Comments WHITE BLOOD CELL (test code = WBC) 9.3 K/mm3 4.5-12.5 N RED BLOOD CELL (test code = RBC) 5.33 mill/mm3 4.0-5.8 N HEMOGLOBIN (test code = HGB) 16.2 gram/dL 13.0-17.5 N HEMATOCRIT (test code = HCT) 45.5 % 42.0-52.0 N MEAN CELL VOLUME (test code = MCV) 85.4 fL 80-98 N MEAN CELL HGB (test code = MCH) 30.4 picogram 27.0-33.0 N MEAN CELL HGB CONCETRATION (test code = MCHC) 35.6 gram/dL 33.0-36. 0 N RED CELL DISTRIBUTION WIDTH (test code = RDW) 12.4 % 11.6-16. 2 N PLATELET COUNT (test code = PLT) 232 K/mm3 150-450 N MEAN PLATELET VOLUME (test code = MPV) 10.9 fL 6.7-11.0 N BASIC METABOLIC [id number] 19:59:00* Test Item Value Reference Range Interpretation Comments SODIUM (test code = NA) 138 mmol/L 136-145 N POTASSIUM (test code = K) 4.2 mmol/L 3.5-5.1 N CHLORIDE (test code = CL) 100.0 mmol/L 98-107 N CARBON DIOXIDE (test code = CO2) mmol/L 21-32 ANION GAP (test code = GAP) 10-20 GLUCOSE (test code = GLU) mg/dL 74-106 BLOOD UREA NITROGEN (test code = BUN) mg/dL 7-18 GLOMERULAR FILTRATION RATE (test code = GFR) mL/min >=60 CREATININE (test code = CREAT) mg/dL 0.7-1.3 BUN/CREATININE RATIO (test code = BUN/CREA) 10-20 CALCIUM (test code = CA) mg/dL 8.5-10.1 HEPATIC FUNCTION [id number] 19:59:00* Test Item Value Reference Range Interpretation Comments TOTAL PROTEIN (test code = PROT) gram/dL 6.4-8.2 ALBUMIN (test code = ALB) g/dL 3.4-5.0 GLOBULIN (test code = GLOB) gram/dL 2.7-4.2 ALBUMIN/GLOBULIN RATIO (test code = A/G) 0.75-1.50 BILIRUBIN TOTAL (test code = BILT) mg/dL 0.0-1.0 BILIRUBIN DIRECT (test code = BILD) mg/dL 0.0-0.20 SGOT/AST (test code = AST) IUnit/L 15-37 SGPT/ALT (test code = ALT) IUnit/L 12-78 ALKALINE PHOSPHATASE TOTAL (test code = ALKP) IUnit/L 45-117 [id number] 19:59:00* Test Item Value Reference Range Interpretation Comments LIPASE (test code = LIP) U/L 73.0-393.0 CBC W/O [id number] 19:57:00* Test Item Value Reference Range Interpretation Comments WHITE BLOOD CELL (test code = WBC) K/mm3 4.5-12.5 RED BLOOD CELL (test code = RBC) mill/mm3 4.0-5.8 HEMOGLOBIN (test code = HGB) 16.2 gram/dL 13.0-17.5 N HEMATOCRIT (test code = HCT) 45.5 % 42.0-52.0 N MEAN CELL VOLUME (test code = MCV) fL 80-98 MEAN CELL HGB (test code = MCH) picogram 27.0-33.0 MEAN CELL HGB CONCETRATION (test code = MCHC) gram/dL 33.0-36. 0 RED CELL DISTRIBUTION WIDTH (test code = RDW) % 11.6-16. 2 PLATELET COUNT (test code = PLT) K/mm3 150-450 MEAN PLATELET VOLUME (test code = MPV) fL 6.7-11.0 [id number] 19:34:00* Test Item Value Reference Range Interpretation Comments GLUBED (test code = GLUBED) 291 mg/dL 74-106 H Performed by certified accelerator operator at [facility] [id number] 19:24:00* Test Item Value Reference Range Interpretation Comments GLUBED (test code = GLUBED) 279 mg/dL 74-106 H Performed by certified accelerator operator at [facility] URINALYSIS [id number] 21:28:00* Test Item Value Reference Range Interpretation Comments UA COLOR (test code = COLU) COLORLESS YELLOW A UA APPEARANCE (test code = APPU) CLEAR CLEAR UA GLUCOSE DIPSTICK (test code = DGLUU) 1000 (3+) mg/dL NEGATIVE A UA BILIRUBIN DIPSTICK (test code = BILU) NEGATIVE mg/dL NEGATIVE UA KETONE DIPSTICK (test code = KETU) 20 (1+) mg/dL NEGATIVE A UA SPECIFIC GRAVITY (test code = SGU) >1.050 1.001-1.035 UA BLOOD DIPSTICK (test code = DARRYL) Negative mg/dL NEGATIVE UA PH DIPSTICK (test code = NATANAEL) 6.0 5.0-8.0 UA PROTEIN DIPSTICK (test code = PROU) NEGATIVE mg/dL NEGATIVE UA UROBILINIOGEN DIPSTICK (test code = URO) Normal mg/dL NEGATIVE UA NITRITE DIPSTICK (test code = ELDON) NEGATIVE NEGATIVE UA LEUKOCYTE ESTERASE W REFLEX (test code = LEUUR) NEGATIVE Lauren/uL NEGATIVE UA WBC (test code = WBCU) 0-5 per HPF 0-5 UA RBC (test code = RBCU) 0-2 #/HPF 0-5 UA EPITHELIAL CELLS (test code = EPIU) FEW per HPF FEW UA BACTERIA (test code = BACU) FEW #/HPF NONE A UA MUCUS (test code = MUCU) FEW #/LPF FEW Urine Source? Clean CatchURINALYSIS [id number] 21:27:00* Test Item Value Reference Range Interpretation Comments UA COLOR (test code = COLU) COLORLESS YELLOW A UA APPEARANCE (test code = APPU) CLEAR CLEAR UA GLUCOSE DIPSTICK (test code = DGLUU) 1000 (3+) mg/dL NEGATIVE A UA BILIRUBIN DIPSTICK (test code = BILU) NEGATIVE mg/dL NEGATIVE UA KETONE DIPSTICK (test code = KETU) 20 (1+) mg/dL NEGATIVE A UA SPECIFIC GRAVITY (test code = SGU) >1.050 1.001-1.035 UA BLOOD DIPSTICK (test code = DARRYL) Negative mg/dL NEGATIVE UA PH DIPSTICK (test code = NATANAEL) 6.0 5.0-8.0 UA PROTEIN DIPSTICK (test code = PROU) NEGATIVE mg/dL NEGATIVE UA UROBILINIOGEN DIPSTICK (test code = URO) Normal mg/dL NEGATIVE UA NITRITE DIPSTICK (test code = ELDON) NEGATIVE NEGATIVE UA LEUKOCYTE ESTERASE W REFLEX (test code = LEUUR) NEGATIVE Lauren/uL NEGATIVE UA WBC (test code = WBCU) per HPF 0-5 UA RBC (test code = RBCU) per HPF 0-5 UA EPITHELIAL CELLS (test code = EPIU) per HPF Few UA BACTERIA (test code = BACU) per HPF NONE Urine Source? Clean Catch- CT ABD PELVIS [id number] 20:46:00 Name: JANELVAUGHN [facility] : 1975 Age/S: 44 / M [address] Unit #: [id number] Loc: [place] [address] Phys: Aditya Franz MD Acct: [id number] Di s Date: Status: REG ER PHONE #: Exam Date: 11/30/20192033 FAX #: Reason: LLQ abdominal pain EXAMS: CPT CODE: [id number] CT ABD PELVIS W/CONT [id number] EXAM: CT of the abdomen a nd pelvis with contrast; INFORMATION: Left lower quadrant pain; TECHNIQUE: CT dose reduction protocol; 5 mm cuts were obtained through the abdomen and pelvis during and after intravenous infusion of contrast material. FINDINGS: Liver, spleen and pancreas are of normal size and shape; they show homogeneous enhancement without focal lesions. No abnormalities of the biliary system. Adre nal glands and kidneys are unremarkable; no evidence of adenopathy; No evidence of appendicitis or other acute bowel abnormalities. No pelvic mass lesions. No abnormal fluid collections. Scans through the lung bases are clear. IMPRESSION: No evidence of acut e abdominal or pelvic abnormalities. Location code: [facility] at 2045 Reported and s igned by: Baljinder Castellano M.D. CC: Elkin Franz MD Technologist:RT DAIRUS(R) CT CTDI: DLP: Trnscb Date/Time: 11/30/2019 (2045) [email or web address] Orig Print D/T: S: 11/30/2019 (2048) PAGE 1 Signed Report BASIC METABOLIC [id number] 20:07:00* Test Item Value Reference Range Interpretation Comments SODIUM (test code = NA) 139 mmol/L 136-145 N POTASSIUM (test code = K) 3.5 mmol/L 3.5-5.1 N CHLORIDE (test code = CL) 106.0 mmol/L 98-107 N CARBON DIOXIDE (test code = CO2) 27.0 mmol/L 21-32 N ANION GAP (test code = GAP) 9.5 10-20 L GLUCOSE (test code = GLU) 168 mg/dL 74-106 H BLOOD UREA NITROGEN (test code = BUN) 16 mg/dL 7-18 N GLOMERULAR FILTRATION RATE (test code = GFR) > 60 mL/min >=60 Estimated GFR by using Modified MDRD formula.Chronic kidney disease is defined as either kidney damageor GFR <60 mL/min/1.73 m2 for >3 months. CREATININE (test code = CREAT) 0.40 mg/dL 0.7-1.3 L BUN/CREATININE RATIO (test code = BUN/CREA) 36.7 10-20 H CALCIUM (test code = CA) 8.3 mg/dL 8.5-10.1 L HEPATIC FUNCTION [id number] 20:07:00* Test Item Value Reference Range Interpretation Comments TOTAL PROTEIN (test code = PROT) 6.8 gram/dL 6.4-8.2 N ALBUMIN (test code = ALB) 3.3 g/dL 3.4-5.0 L GLOBULIN (test code = GLOB) 3.5 gram/dL 2.7-4.2 N ALBUMIN/GLOBULIN RATIO (test code = A/G) 0.9 0.75-1.50 N BILIRUBIN TOTAL (test code = BILT) 0.70 mg/dL 0.0-1.0 N BILIRUBIN DIRECT (test code = BILD) 0.17 mg/dL 0.0-0.20 N SGOT/AST (test code = AST) 6 IUnit/L 15-37 L SGPT/ALT (test code = ALT) 16 IUnit/L 12-78 N ALKALINE PHOSPHATASE TOTAL (test code = ALKP) 65 IUnit/L 45-117 N Note change in reference range due to change in reagent. [id number] 20:07:00* Test Item Value Reference Range Interpretation Comments LIPASE (test code = LIP) 77 U/L 73.0-393.0 N BASIC METABOLIC [id number] 19:58:00* Test Item Value Reference Range Interpretation Comments SODIUM (test code = NA) 139 mmol/L 136-145 N POTASSIUM (test code = K) 3.5 mmol/L 3.5-5.1 N CHLORIDE (test code = CL) 106.0 mmol/L 98-107 N CARBON DIOXIDE (test code = CO2) mmol/L 21-32 ANION GAP (test code = GAP) 10-20 GLUCOSE (test code = GLU) mg/dL 74-106 BLOOD UREA NITROGEN (test code = BUN) mg/dL 7-18 GLOMERULAR FILTRATION RATE (test code = GFR) mL/min >=60 CREATININE (test code = CREAT) mg/dL 0.7-1.3 BUN/CREATININE RATIO (test code = BUN/CREA) 10-20 CALCIUM (test code = CA) mg/dL 8.5-10.1 HEPATIC FUNCTION [id number] 19:58:00* Test Item Value Reference Range Interpretation Comments TOTAL PROTEIN (test code = PROT) gram/dL 6.4-8.2 ALBUMIN (test code = ALB) g/dL 3.4-5.0 GLOBULIN (test code = GLOB) gram/dL 2.7-4.2 ALBUMIN/GLOBULIN RATIO (test code = A/G) 0.75-1.50 BILIRUBIN TOTAL (test code = BILT) mg/dL 0.0-1.0 BILIRUBIN DIRECT (test code = BILD) mg/dL 0.0-0.20 SGOT/AST (test code = AST) IUnit/L 15-37 SGPT/ALT (test code = ALT) IUnit/L 12-78 ALKALINE PHOSPHATASE TOTAL (test code = ALKP) IUnit/L 45-117 [id number] 19:58:00* Test Item Value Reference Range Interpretation Comments LIPASE (test code = LIP) U/L 73.0-393.0 LACTIC [id number] 16:19:00* Test Item Value Reference Range Interpretation Comments LACTIC ACID (test code = LACT) 1.0 mmol/L 0.4-1.9 N CBC W/O [id number] 15:33:00* Test Item Value Reference Range Interpretation Comments WHITE BLOOD CELL (test code = WBC) 7.9 K/mm3 4.5-12.5 N RED BLOOD CELL (test code = RBC) 5.49 mill/mm3 4.0-5.8 N HEMOGLOBIN (test code = HGB) 16.8 gram/dL 13.0-17.5 N HEMATOCRIT (test code = HCT) 46.5 % 42.0-52.0 N MEAN CELL VOLUME (test code = MCV) 84.7 fL 80-98 N MEAN CELL HGB (test code = MCH) 30.6 picogram 27.0-33.0 N MEAN CELL HGB CONCETRATION (test code = MCHC) 36.1 gram/dL 33.0-36. 0 H RED CELL DISTRIBUTION WIDTH (test code = RDW) 12.3 % 11.6-16. 2 N PLATELET COUNT (test code = PLT) 234 K/mm3 150-450 N MEAN PLATELET VOLUME (test code = MPV) 11.2 fL 6.7-11.0 H CBC W/O [id number] 15:32:00* Test Item Value Reference Range Interpretation Comments WHITE BLOOD CELL (test code = WBC) K/mm3 4.5-12.5 RED BLOOD CELL (test code = RBC) mill/mm3 4.0-5.8 HEMOGLOBIN (test code = HGB) 16.8 gram/dL 13.0-17.5 N HEMATOCRIT (test code = HCT) 46.5 % 42.0-52.0 N MEAN CELL VOLUME (test code = MCV) fL 80-98 MEAN CELL HGB (test code = MCH) picogram 27.0-33.0 MEAN CELL HGB CONCETRATION (test code = MCHC) gram/dL 33.0-36. 0 RED CELL DISTRIBUTION WIDTH (test code = RDW) % 11.6-16. 2 PLATELET COUNT (test code = PLT) K/mm3 150-450 MEAN PLATELET VOLUME (test code = MPV) fL 6.7-11.0 - XR CHEST 1 [id number] 14:10:00 FAX: Elkin Franz MD [place]: B St: REG Name: VAUGHN PATTERSON [facility] : [birth year] Age/S: 44/M [address] [facility] Unit #: [id number] Loc: [place] [address] Phys: Elkin Franz MD Acct: [id number] Dis Date: Status: REG ER PHONE #: [phone] Exam Date: 11/30/2019 1334 FAX #: [phone] Reason: ABDOMINAL PAIN EXAMS: CPT CODE: [id number] XR CHEST 1 V 40299 HISTORY: Abdominal pain. COMPARISON: Chest x-ray from August 09, 2018. Location: [facility]. Single view chest: No acute infiltrates, effusion or congestion. Cardiac and the mediastinal silhouette are normal. IMPRESSION: No acute infiltrates, effusion or congestion. at 1410 Reported and signed by: Naveed Cool M.D. CC: Elkin Franz MD Technologist: Cecily Bledsoe RT(R) Trnscrd Date/Time/By: 11/30/2019 (1410) : By: [email or web address] Orig Print D/T: S: 11/30/2019 (3357) PAGE 1 Signed Report [id number] 13:40:00 RUN DATE: 11/26/19 [facility] PAGE 1 RUN TIME: 1340 Specimen Inqui ry RUN USER: INTERFACE PATIENT: VAUGHN LARSON ACCT #: [id number] LOC: [place] #: [id number] AGE/SX: 44/M ROOM: [facility] RE11/23/19REG DR: Carolyn Stevenson MD : 75 BED: A DIS: 11/25/19 STATUS: DIS IN TLOC: SPEC #: [id number] RECD: 11/25/19 STATUS: NATAN DANIELS #: [id number] AUGUSTUS: 11/24/19- SUBM DR: Carolyn Stevenson MD ENTERED: 11/25/19 SP TYPE: COLON OTHR DR: [facility] or Family Physician Declan Moore MDORDERED: GROSS COPIES TO: [facility] or Family Ph ysician Declan Moore MD [address], [address] [place] [address] Carolyn Stevenson MD [address] [place] [address] PROCEDURES: GROSS (11/26/19-1133) TISSUES: SIGMOID COLON - BX CLINICAL HISTORY COLLECTION DATE: 11/25/2019 ABD PAIN COLON POLYP/SUBOPTIMAL PREP FINAL DIAGNOSIS Sigmoid colon polyp, cold snare: TUBULAR ADENOMA NEGATIVE FOR HIGH-GRADE DYSPLASIA AND MALIGNANCY RRB/gm D 65361 C ONTINUED ON NEXT PAGE RUN DATE: 11/26/19 [facility] PAGE 2 RUN TIME: 1340 Specimen Inquiry RUN USER: INTERFACE SPEC #: [id number] PATIENT: VAUGHN LARSON #[id number] (Continued) - MACROSCOPIC The specimen is received in formalin, labeled with t he patient's name, and identified as "Sigmoid colon snare". It consists of a lopez nodular fragment of tissue measuring 0.3 cm, submitted for histologic eval uation. GROSS PERFORMED AT [facility] [address] [place] [address] [phone] MICROSCOPIC All of the stains, including any controls performed, chiqui hdz appropriately. MICROSCOPIC PERFORMED AT [facility] [address] [place] [address] [phone] PERFORMING SITE Processed at: [facility] Deborah [facility] [address] [place] [address] Signed SIGNATURE ON FILE Lucio Ryder MD 11/26/19 1340 END OF REPORT [id number] 11:06:00* Test Item Value Reference Range Interpretation Comments GLYCOSYLATED HEMOGLOBIN (HA1C) (test code = GLYHGB) 9.7 % HbA1 SUGGESTED DIAGNOSIS: HbA1C (%) Diabetic >6.4Prediabetes 5.7 - 6.4Normal <5.7 ESTIMATED AVERAGE GLUCOSE (test code = EAG) 232 MG/DL COMMENTS TO IN HOME TUTOR: ADD to sample in [id number] 09:10:00* Test Item Value Reference Range Interpretation Comments GLUBED (test code = GLUBED) 153 mg/dL 74-106 H Performed by certified accelerator operator at [facility] [id number] 23:23:00* Test Item Value Reference Range Interpretation Comments GLUBED (test code = GLUBED) 120 mg/dL 74-106 H Performed by certified accelerator operator at [facility] Novel Coronavirus 2019 [id number] 23:18:00* Test Item Value Reference Range Interpretation Comments Novel Coronavirus 2018 Inhouse (test code = COVNONPUI) Negative Negative Testing Criteria: Preprocedure ScreeningComments: colonoscopy Coronavirus 2019 [id number] 23:18:00* Test Item Value Reference Range Interpretation Comments Novel Coronavirus 2019 Inhouse (test code = COVNONPUI) Negative Negative Testing Criteria: Preprocedure ScreeningComments: colonoscopy GLUBED 2019-11-24 22:39:00* Test Item Value Reference Range Interpretation Comments GLUBED (test code = GLUBED) 123 mg/dL 74-106 H Performed by certified accelerator operator at [facility] [id number] 20:29:00* Test Item Value Reference Range Interpretation Comments GLUBED (test code = GLUBED) 185 mg/dL 74-106 H Performed by certified accelerator operator at [facility] [id number] 15:54:00* Test Item Value Reference Range Interpretation Comments GLUBED (test code = GLUBED) 85 mg/dL 74-106 N Performed by certified accelerator operator at [facility] [id number] 12:11:00* Test Item Value Reference Range Interpretation Comments GLUBED (test code = GLUBED) 130 mg/dL 74-106 H Performed by certified accelerator operator at [facility] COMPREHENSIVE METABOLIC [id number] 10:57:00* Test Item Value Reference Range Interpretation Comments SODIUM (test code = NA) 137 mmol/L 136-145 N POTASSIUM (test code = K) 3.6 mmol/L 3.5-5.1 N CHLORIDE (test code = CL) 102.0 mmol/L 98-107 N CARBON DIOXIDE (test code = CO2) 30.0 mmol/L 21-32 N ANION GAP (test code = GAP) 8.6 10-20 L GLUCOSE (test code = GLU) 155 mg/dL 74-106 H BLOOD UREA NITROGEN (test code = BUN) 6 mg/dL 7-18 L GLOMERULAR FILTRATION RATE (test code = GFR) > 60 mL/min >=60 Estimated GFR by using Modified MDRD formula.Chronic kidney disease is defined as either kidney damageor GFR <60 mL/min/1.73 m2 for >3 months. CREATININE (test code = CREAT) 0.40 mg/dL 0.7-1.3 L BUN/CREATININE RATIO (test code = BUN/CREA) 15.0 10-20 N TOTAL PROTEIN (test code = PROT) 6.9 gram/dL 6.4-8.2 N ALBUMIN (test code = ALB) 3.4 g/dL 3.4-5.0 N GLOBULIN (test code = GLOB) 3.5 gram/dL 2.7-4.2 N ALBUMIN/GLOBULIN RATIO (test code = A/G) 1.0 0.75-1.50 N CALCIUM (test code = CA) 8.9 mg/dL 8.5-10.1 N BILIRUBIN TOTAL (test code = BILT) 0.70 mg/dL 0.0-1.0 N SGOT/AST (test code = AST) 12 IUnit/L 15-37 L SGPT/ALT (test code = ALT) 17 IUnit/L 12-78 N ALKALINE PHOSPHATASE TOTAL (test code = ALKP) 66 IUnit/L 45-117 N Note change in reference range due to change in reagent. [id number] 10:57:00* Test Item Value Reference Range Interpretation Comments MAGNESIUM (test code = MAG) 1.9 mg/dL 1.8-2.4 N COMPREHENSIVE METABOLIC [id number] 10:40:00* Test Item Value Reference Range Interpretation Comments SODIUM (test code = NA) 137 mmol/L 136-145 N POTASSIUM (test code = K) 3.6 mmol/L 3.5-5.1 N CHLORIDE (test code = CL) 102.0 mmol/L 98-107 N CARBON DIOXIDE (test code = CO2) mmol/L 21-32 ANION GAP (test code = GAP) 10-20 GLUCOSE (test code = GLU) mg/dL 74-106 BLOOD UREA NITROGEN (test code = BUN) mg/dL 7-18 GLOMERULAR FILTRATION RATE (test code = GFR) mL/min >=60 CREATININE (test code = CREAT) mg/dL 0.7-1.3 BUN/CREATININE RATIO (test code = BUN/CREA) 10-20 TOTAL PROTEIN (test code = PROT) gram/dL 6.4-8.2 ALBUMIN (test code = ALB) g/dL 3.4-5.0 GLOBULIN (test code = GLOB) gram/dL 2.7-4.2 ALBUMIN/GLOBULIN RATIO (test code = A/G) 0.75-1.50 CALCIUM (test code = CA) mg/dL 8.5-10.1 BILIRUBIN TOTAL (test code = BILT) mg/dL 0.0-1.0 SGOT/AST (test code = AST) IUnit/L 15-37 SGPT/ALT (test code = ALT) IUnit/L 12-78 ALKALINE PHOSPHATASE TOTAL (test code = ALKP) IUnit/L 45-117 [id number] 10:40:00* Test Item Value Reference Range Interpretation Comments MAGNESIUM (test code = MAG) mg/dL 1.8-2.4 CBC W/AUTO [id number] 10:17:00* Test Item Value Reference Range Interpretation Comments WHITE BLOOD CELL (test code = WBC) 7.8 K/mm3 4.5-12.5 N RED BLOOD CELL (test code = RBC) 5.06 mill/mm3 4.0-5.8 N HEMOGLOBIN (test code = HGB) 15.3 gram/dL 13.0-17.5 N HEMATOCRIT (test code = HCT) 42.7 % 42.0-52.0 N MEAN CELL VOLUME (test code = MCV) 84.4 fL 80-98 N MEAN CELL HGB (test code = MCH) 30.2 picogram 27.0-33.0 N MEAN CELL HGB CONCETRATION (test code = MCHC) 35.8 gram/dL 33.0-36. 0 N RED CELL DISTRIBUTION WIDTH (test code = RDW) 12.3 % 11.6-16. 2 N RED CELL DISTRIBUTION WIDTH SD (test code = RDW-SD) 37.4 fL 37 .0-51.0 N PLATELET COUNT (test code = PLT) 195 K/mm3 150-450 N MEAN PLATELET VOLUME (test code = MPV) 11.0 fL 6.7-11.0 N NEUTROPHIL % (test code = NT%) 72.4 % 39.0-69.0 H IMMATURE GRANULOCYTE % (test code = IG%) 0.4 % 0.0-5.0 N LYMPHOCYTE % (test code = LY%) 20.7 % 25.0-55.0 L MONOCYTE % (test code = MO%) 5.9 % 0.0-10.0 N EOSINOPHIL % (test code = EO%) 0.5 % 0.0-5.0 N BASOPHIL % (test code = BA%) 0.1 % 0.0-1.0 N NUCLEATED RBC % (test code = NRBC%) 0.0 % 0-0 N NEUTROPHIL # (test code = NT#) 5.66 K/mm3 1.8-7.7 N IMMATURE GRANULOCYTE # (test code = IG#) 0.03 x10 3/uL 0-0.03 N LYMPHOCYTE # (test code = LY#) 1.62 K/mm3 1.0-5.0 N MONOCYTE # (test code = MO#) 0.46 K/mm3 0-0.8 N EOSINOPHIL # (test code = EO#) 0.04 K/mm3 0.0-0.5 N BASOPHIL # (test code = BA#) 0.01 K/mm3 0.0-0.2 N NUCLEATED RBC # (test code = NRBC#) 0.00 K/mm3 0.0-0.1 N CBC W/AUTO [id number] 10:16:00* Test Item Value Reference Range Interpretation Comments WHITE BLOOD CELL (test code = WBC) K/mm3 4.5-12.5 RED BLOOD CELL (test code = RBC) mill/mm3 4.0-5.8 HEMOGLOBIN (test code = HGB) 15.3 gram/dL 13.0-17.5 N HEMATOCRIT (test code = HCT) 42.7 % 42.0-52.0 N MEAN CELL VOLUME (test code = MCV) fL 80-98 MEAN CELL HGB (test code = MCH) picogram 27.0-33.0 MEAN CELL HGB CONCETRATION (test code = MCHC) gram/dL 33.0-36. 0 RED CELL DISTRIBUTION WIDTH (test code = RDW) % 11.6-16. 2 RED CELL DISTRIBUTION WIDTH SD (test code = RDW-SD) fL 37 .0-51.0 PLATELET COUNT (test code = PLT) K/mm3 150-450 MEAN PLATELET VOLUME (test code = MPV) fL 6.7-11.0 NEUTROPHIL % (test code = NT%) % 39.0-69.0 IMMATURE GRANULOCYTE % (test code = IG%) % 0.0-5.0 LYMPHOCYTE % (test code = LY%) % 25.0-55.0 MONOCYTE % (test code = MO%) % 0.0-10.0 EOSINOPHIL % (test code = EO%) % 0.0-5.0 BASOPHIL % (test code = BA%) % 0.0-1.0 NEUTROPHIL # (test code = NT#) K/mm3 1.8-7.7 LYMPHOCYTE # (test code = LY#) K/mm3 1.0-5.0 MONOCYTE # (test code = MO#) K/mm3 0-0.8 EOSINOPHIL # (test code = EO#) K/mm3 0.0-0.5 BASOPHIL # (test code = BA#) K/mm3 0.0-0.2 [id number] 08:11:00* Test Item Value Reference Range Interpretation Comments GLUBED (test code = GLUBED) 77 mg/dL 74-106 N Performed by certified accelerator operator at [facility] [id number] 00:39:00* Test Item Value Reference Range Interpretation Comments GLUBED (test code = GLUBED) 146 mg/dL 74-106 H Performed by certified accelerator operator at [facility] [id number] 23:44:00* Test Item Value Reference Range Interpretation Comments GLUBED (test code = GLUBED) 67 mg/dL 74-106 L Performed by certified accelerator operator at [facility] [id number] 20:14:00* Test Item Value Reference Range Interpretation Comments GLUBED (test code = GLUBED) 193 mg/dL 74-106 H Performed by certified accelerator operator at [facility] [id number] 16:38:00* Test Item Value Reference Range Interpretation Comments GLUBED (test code = GLUBED) 66 mg/dL 74-106 L Performed by certified accelerator operator at [facility] [id number] 12:27:00* Test Item Value Reference Range Interpretation Comments GLUBED (test code = GLUBED) 168 mg/dL 74-106 H Performed by certified accelerator operator at [facility] DRUGS OF ABUSE SCREEN [id number] 09:08:00* Test Item Value Reference Range Interpretation Comments UA PH DIPSTICK (test code = NATANAEL) 6.5 5.0-8.0 URN COCAINE (test code = COCAURN) NEGATIVE <300 ng/mL URN CANNABINOIDS (test code = CANNABURN) POSITIVE <50 ng/mL A This test provides only a preliminary test result. A morespecific alternate chemical method must be used in order toobtain a confirmed analytical result. Gas chromatography/mass spectrometry (GC/MS) is thepreferred confirmatory method. Other chemical confirmationmethods are available. Clinical consideration and professional judgment should be applied to any drug of abusetest result, particularly when preliminary positive resultsare used.Unconfirmed screening results must not be used fornon-medical purposes (e.g., employment testing, legaltesting). URN AMPHETAMINE (test code = AMPHETURN) NEGATIVE <1000 ng/mL URN BARBITURATE (test code = BARBITURN) NEGATIVE <200 ng/mL URN BENZODIAZEPINE (test code = BENZOURN) NEGATIVE <200 ng/mL URN OPIATES (test code = OPIATURN) POSITIVE <300 ng/mL A This test provides only a preliminary test result. A morespecific alternate chemical method must be used in order toobtain a confirmed analytical result. Gas chromatography/mass spectrometry (GC/MS) is thepreferred confirmatory method. Other chemical confirmationmethods are available. Clinical consideration and professional judgment should be applied to any drug of abusetest result, particularly when preliminary positive resultsare used.Unconfirmed screening results must not be used fornon-medical purposes (e.g., employment testing, legaltesting). URN PHENCYCLIDINE (PCP) (test code = PHENCURN) NEGATIVE <25 ng/ mL URN METHADONE (test code = METHAURN) NEGATIVE <300 ng/mL DRUGS OF ABUSE SCREEN [id number] 08:59:00* Test Item Value Reference Range Interpretation Comments UA PH DIPSTICK (test code = NATANAEL) 5.0-8.0 URN COCAINE (test code = COCAURN) NEGATIVE <300 ng/mL URN CANNABINOIDS (test code = CANNABURN) POSITIVE <50 ng/mL A This test provides only a preliminary test result. A morespecific alternate chemical method must be used in order toobtain a confirmed analytical result. Gas chromatography/mass spectrometry (GC/MS) is thepreferred confirmatory method. Other chemical confirmationmethods are available. Clinical consideration and professional judgment should be applied to any drug of abusetest result, particularly when preliminary positive resultsare used.Unconfirmed screening results must not be used fornon-medical purposes (e.g., employment testing, legaltesting). URN AMPHETAMINE (test code = AMPHETURN) NEGATIVE <1000 ng/mL URN BARBITURATE (test code = BARBITURN) NEGATIVE <200 ng/mL URN BENZODIAZEPINE (test code = BENZOURN) NEGATIVE <200 ng/mL URN OPIATES (test code = OPIATURN) POSITIVE <300 ng/mL A This test provides only a preliminary test result. A morespecific alternate chemical method must be used in order toobtain a confirmed analytical result. Gas chromatography/mass spectrometry (GC/MS) is thepreferred confirmatory method. Other chemical confirmationmethods are available. Clinical consideration and professional judgment should be applied to any drug of abusetest result, particularly when preliminary positive resultsare used.Unconfirmed screening results must not be used fornon-medical purposes (e.g., employment testing, legaltesting). URN PHENCYCLIDINE (PCP) (test code = PHENCURN) NEGATIVE <25 ng/ mL URN METHADONE (test code = METHAURN) NEGATIVE <300 ng/mL URINALYSIS [id number] 08:41:00* Test Item Value Reference Range Interpretation Comments UA COLOR (test code = COLU) COLORLESS YELLOW A UA APPEARANCE (test code = APPU) CLEAR CLEAR UA GLUCOSE DIPSTICK (test code = DGLUU) >1000 (4+) mg/dL NEGATIVE UA BILIRUBIN DIPSTICK (test code = BILU) NEGATIVE mg/dL NEGATIVE UA KETONE DIPSTICK (test code = KETU) 10 (1+) mg/dL NEGATIVE A UA SPECIFIC GRAVITY (test code = SGU) 1.015 1.001-1.035 UA BLOOD DIPSTICK (test code = DARRYL) Negative mg/dL NEGATIVE UA PH DIPSTICK (test code = NATANAEL) 6.5 5.0-8.0 UA PROTEIN DIPSTICK (test code = PROU) NEGATIVE mg/dL NEGATIVE UA UROBILINIOGEN DIPSTICK (test code = URO) Normal mg/dL NEGATIVE UA NITRITE DIPSTICK (test code = ELDON) NEGATIVE NEGATIVE UA LEUKOCYTE ESTERASE W REFLEX (test code = LEUUR) NEGATIVE Lauren/uL NEGATIVE UA WBC (test code = WBCU) 0-5 per HPF 0-5 UA EPITHELIAL CELLS (test code = EPIU) MODERATE per HPF FEW Urine Source? Clean [id number] 08:23:00* Test Item Value Reference Range Interpretation Comments GLUBED (test code = GLUBED) 249 mg/dL 74-106 H Performed by certified accelerator operator at [facility] - CT ABD PELVIS [id number] 21:53:00 Name: AVUGHN LARSON [facility] : 1975 Age/S: 44 / M [address] [facility] Unit #: [id number] Loc: [place] [address] Phys: Jean Ceja DO Acct: [id number] Dis Date: Status: REG ER PHONE #: [phone] Exam Date: 11/22/20194 FAX #: [phone] Reason: LLQ pain EXAMS: CPT CODE: [id number] CT ABD PELVIS W/CONT 64805 REASON FOR EXAM: LLQ pain EXAM ORDER DATE: 11/22/2019 6:03 PM Ordering: Jean Ceja DO Attending:Jean Ceja DO Location:[facility] PROCEDURE: - CT ABD PELVIS W/CONT COMPARISON: 11/02/2019 FINDINGS: CT images of the abdomen and pelvis were obtained with IV and without oral contrast at 5mm. Dose modulation, iterative reconstruction, and/or weight based adjustment of the MA/KV was utilized to reduce the radiation dose to as low as reasonably achievable. Intravenous contrast: 100cc of Omnipaque 370. The liver, spleen, pancreas are grossly within normal limits. The gallbladder is unremarkable by CT The kidneys are within normal limits. The urinary bladder is partially contracted The small bowel, and stomach are within normal limits without evidence of obstruction. The appendix is unremarkable. No evidence of free air or free fluid. IMPRESSION: Nonspecific mild thickening of the wall of the sigmoid colon. Differential diagnosis includes colitis versus intraluminal colonic mass . Recommend correlation with colonoscopy at 2153 Reported and signed by : Driss Mann M.D. PAGE 1 Signed Report (CONTINUED) [facility] 1975 Age[facility]S: 44 / M [address] [facility] Unit #: [id number] Loc: [place] [address] Phys: Jean Ceja DO Acct: [id number] Dis Date: Status: REG ER PHONE #: [phone] Exam Date: 11/22/20192143 FAX #: [phone] Reason: LLQ pain EXAMS: CPT CODE: [id number] ABD PELVIS W/CONT 68507 < Continued> CC: Jean Ceja DO Technologist:Emily Rodríguez RT(R); [employer] Flood CTDI: DLP: Trnscb Date/Time: 11/22/2019 (2152) [facility] Orig Print D/T: S: 11/22/2019 (2155) PAGE 2 Signed Report CBC W/O [id number] 20:06:00* Test Item Value Reference Range Interpretation Comments WHITE BLOOD CELL (test code = WBC) 8.2 K/mm3 4.5-12.5 N RED BLOOD CELL (test code = RBC) 4.86 mill/mm3 4.0-5.8 N HEMOGLOBIN (test code = HGB) 14.7 gram/dL 13.0-17.5 N HEMATOCRIT (test code = HCT) 41.5 % 42.0-52.0 L MEAN CELL VOLUME (test code = MCV) 85.4 fL 80-98 N MEAN CELL HGB (test code = MCH) 30.2 picogram 27.0-33.0 N MEAN CELL HGB CONCETRATION (test code = MCHC) 35.4 gram/dL 33.0-36. 0 N RED CELL DISTRIBUTION WIDTH (test code = RDW) 12.5 % 11.6-16. 2 N PLATELET COUNT (test code = PLT) 187 K/mm3 150-450 N MEAN PLATELET VOLUME (test code = MPV) 10.7 fL 6.7-11.0 N BASIC METABOLIC [id number] 20:05:00* Test Item Value Reference Range Interpretation Comments SODIUM (test code = NA) 137 mmol/L 136-145 N POTASSIUM (test code = K) 4.0 mmol/L 3.5-5.1 N CHLORIDE (test code = CL) 106.0 mmol/L 98-107 N CARBON DIOXIDE (test code = CO2) 27.0 mmol/L 21-32 N ANION GAP (test code = GAP) 8.0 10-20 L GLUCOSE (test code = GLU) 237 mg/dL 74-106 H BLOOD UREA NITROGEN (test code = BUN) 12 mg/dL 7-18 N GLOMERULAR FILTRATION RATE (test code = GFR) > 60 mL/min >=60 Estimated GFR by using Modified MDRD formula.Chronic kidney disease is defined as either kidney damageor GFR <60 mL/min/1.73 m2 for >3 months. CREATININE (test code = CREAT) 0.60 mg/dL 0.7-1.3 L BUN/CREATININE RATIO (test code = BUN/CREA) 20.0 10-20 N CALCIUM (test code = CA) 8.4 mg/dL 8.5-10.1 L HEPATIC FUNCTION [id number] 20:05:00* Test Item Value Reference Range Interpretation Comments TOTAL PROTEIN (test code = PROT) 6.5 gram/dL 6.4-8.2 N ALBUMIN (test code = ALB) 3.1 g/dL 3.4-5.0 L GLOBULIN (test code = GLOB) 3.4 gram/dL 2.7-4.2 N ALBUMIN/GLOBULIN RATIO (test code = A/G) 0.9 0.75-1.50 N BILIRUBIN TOTAL (test code = BILT) 0.50 mg/dL 0.0-1.0 N BILIRUBIN DIRECT (test code = BILD) 0.12 mg/dL 0.0-0.20 N SGOT/AST (test code = AST) 15 IUnit/L 15-37 N SGPT/ALT (test code = ALT) 18 IUnit/L 12-78 N ALKALINE PHOSPHATASE TOTAL (test code = ALKP) 71 IUnit/L 45-117 N Note change in reference range due to change in reagent. [id number] 20:05:00* Test Item Value Reference Range Interpretation Comments LIPASE (test code = LIP) 94 U/L 73.0-393.0 N BASIC METABOLIC [id number] 20:01:00* Test Item Value Reference Range Interpretation Comments SODIUM (test code = NA) 137 mmol/L 136-145 N POTASSIUM (test code = K) 4.0 mmol/L 3.5-5.1 N CHLORIDE (test code = CL) 106.0 mmol/L 98-107 N CARBON DIOXIDE (test code = CO2) mmol/L 21-32 ANION GAP (test code = GAP) 10-20 GLUCOSE (test code = GLU) mg/dL 74-106 BLOOD UREA NITROGEN (test code = BUN) mg/dL 7-18 GLOMERULAR FILTRATION RATE (test code = GFR) mL/min >=60 CREATININE (test code = CREAT) mg/dL 0.7-1.3 BUN/CREATININE RATIO (test code = BUN/CREA) 10-20 CALCIUM (test code = CA) mg/dL 8.5-10.1 HEPATIC FUNCTION [id number] 20:01:00* Test Item Value Reference Range Interpretation Comments TOTAL PROTEIN (test code = PROT) gram/dL 6.4-8.2 ALBUMIN (test code = ALB) g/dL 3.4-5.0 GLOBULIN (test code = GLOB) gram/dL 2.7-4.2 ALBUMIN/GLOBULIN RATIO (test code = A/G) 0.75-1.50 BILIRUBIN TOTAL (test code = BILT) mg/dL 0.0-1.0 BILIRUBIN DIRECT (test code = BILD) mg/dL 0.0-0.20 SGOT/AST (test code = AST) IUnit/L 15-37 SGPT/ALT (test code = ALT) IUnit/L 12-78 ALKALINE PHOSPHATASE TOTAL (test code = ALKP) IUnit/L 45-117 [id number] 20:01:00* Test Item Value Reference Range Interpretation Comments LIPASE (test code = LIP) U/L 73.0-393.0 Hemoglobin [id number] 20:18:00* Test Item Value Reference Range Interpretation Comments Hemoglobin A1c (test code = 4548-4) 12.2 % 4.3-6.1 H Estimated Average Glucose (test code = 35635008) 303 mg/dL 70-11 0 H Lab Interpretation (test code = 91222-5) Abnormal [facility] Metabolic [id number] 20:06:00* Test Item Value Reference Range Interpretation Comments Sodium (test code = 2951-2) 135 mmol/L 136-145 L Potassium (test code = 2823-3) 3.9 mmol/L 3.5-5.1 Chloride (test code = 2075-0) 95 mmol/L 98-107 L CO2 (test code = 83165075) 31 mmol/L 21-31 Urea Nitrogen (test code = 01435392) 12.0 mg/dL 7-25 Creatinine (test code = 42231496) 0.5 mg/dL 0.7-1.3 L Glucose (test code = 59630605) 284 mg/dL 70-110 H Calcium (test code = 31394873) 10.2 mg/dL 8.6-10.3 GFR, Estimated (test code = 71009860) >90 >=90 mL/min/1.73 m2 Anion Gap (test code = 86225067) 9 mmol/L 5-16 Lab Interpretation (test code = 31498-0) [facility] [id number] 20:06:00* Test Item Value Reference Range Interpretation Comments Cholesterol (test code = 2093-3) 241.0 mg/dL <=200.0 H Triglyceride (test code = 07504099) 142 mg/dL <150 HDL (test code = 2085-9) 51.0 mg/dL See Reference Range Narrative . LDL (test code = 06669-3) 162 mg/dL <100 H Op timal: < 100.0 mg/dLNear Optimal: 120-129 mg/dLBorderline: 130-159 mg/dLHigh: 160-189 mg/dLVery High: >=190 mg/dL Patient Fasting? (test code = 55549718) No NADYA (test code = NADYA) Patient is not fasting. For a triglyceride result greater than 440 mg/dL, consider re-testing when the patient is in a fasting state. Lab Interpretation (test code = 99531-4) Abnormal [facility] [id number] 20:06:00* Test Item Value Reference Range Interpretation Comments Bilirubin, Total (test code = 2885-2) 0.7 mg/dL 0.2-1.2 Alkaline Phosphatase (test code = 62234776) 67 U/L 34-104 AST (test code = 34395764) 13 U/L 13-39 Direct Bilirubin (test code = 1968-7) 0.1 mg/dL 0-0.2 ALT (test code = 17543440) 13 U/L 7-52 Albumin (test code = 12951-9) 4.4 g/dL 4.2-5.5 Lab Interpretation (test code = 73921-0) Normal [facility] ABD PELVIS [id number] 21:11:00 Name: VAUGHN LARSON [facility] : 1975 Age/S: 44 / M [address] [facility] Unit #: [id number] Loc: [place] [address] Phys: Tori Chan NP Acct: [id number] Dis Date: Status: REG ER PHONE #: [phone] Exam Date: 11/02/20192049 FAX #: [phone] Reason: lower abdominal pain EXAMS: CPT CODE: [id number] CT ABD PELVIS W/CONT 93787 REASON FOR EXAM: lower abdominal pain EXAM ORDER DATE: 11/02/2019 7:42 PM Ordering M.DAlon: Tori Chan NP PROCEDURE: - CT ABD PELVIS W/CONT contrast-enhanced axial CT images were acquired through the abdomen/pelvis at 5 mm intervals. Sagittal and coronal reformatted images were generated. Automated exposure control was utilized for this reduction. Phases of contrast: venous and delayed COMPARISON: CT abdomen and pelvis August 04, 2018 FINDINGS: Visualized thorax: Normal Hepatobiliary system: Normal Pancreas: Normal Spleen: Normal Adrenal glands: Normal Genitourinary system: Normal Gastrointestinal tract and appendix: Normal Abdominal vascular structures: Normal Pe ritoneum and retroperitoneum: No free fluid or free air. No omental or me senteric masses. No abnormal lymph nodes. Musculoskeletal structu res and abdominal wall: Disc degeneration at L4-L5 is similar to the prior exam. There is sacralization of the L5 vertebrae IMPRESSI ON: No acute intra-abdominal process Location: [facility] PAGE 1 Signed Report (CONTINUED) N cat: VAUGHN LARSON [facility] : 1 08/17/1974 Age/S: 44 / M [address] [facility] Unit #: [id number] Loc: [place] [address] Phys: Tori Chan NP Acct: [id number] Dis D ate: Status: REG ER PHONE #: Exam Date: 11/02/20192049 FAX #: [phone] Reason: lower abdominal pain EXAMS: CPT CODE: [id number] CT ABD PELVIS W/ CONT 94608 <Continued> at 2110 Reported and signed by: Sharath Hoover MD CC: Tori Chan NP Technologist:RT DARIUS(R) CT CTDI: DLP: Trnscb Date/Time: 11/02/2019 (2110) [email or web address] Orig Print D/T: S: 11/02/2019 (2114) PAGE 2 Signed Report DRUGS OF ABUSE SCREEN [id number] 20:33:00* Test Item Value Reference Range Interpretation Comments UA PH DIPSTICK (test code = NATANAEL) 5.0-8.0 URN COCAINE (test code = COCAURN) NEGATIVE <300 ng/mL URN CANNABINOIDS (test code = CANNABURN) POSITIVE <50 ng/mL A This test provides only a preliminary test result. A morespecific alternate chemical method must be used in order toobtain a confirmed analytical result. Gas chromatography/mass spectrometry (GC/MS) is thepreferred confirmatory method. Other chemical confirmationmethods are available. Clinical consideration and professional judgment should be applied to any drug of abusetest result, particularly when preliminary positive resultsare used.Unconfirmed screening results must not be used fornon-medical purposes (e.g., employment testing, legaltesting). URN AMPHETAMINE (test code = AMPHETURN) NEGATIVE <1000 ng/mL URN BARBITURATE (test code = BARBITURN) NEGATIVE <200 ng/mL URN BENZODIAZEPINE (test code = BENZOURN) NEGATIVE <200 ng/mL URN OPIATES (test code = OPIATURN) NEGATIVE <300 ng/mL URN PHENCYCLIDINE (PCP) (test code = PHENCURN) NEGATIVE <25 ng/ mL URN METHADONE (test code = METHAURN) NEGATIVE <300 ng/mL DRUGS OF ABUSE SCREEN [id number] 20:33:00* Test Item Value Reference Range Interpretation Comments UA PH DIPSTICK (test code = NATANAEL) 5.5 5.0-8.0 URN COCAINE (test code = COCAURN) NEGATIVE <300 ng/mL URN CANNABINOIDS (test code = CANNABURN) POSITIVE <50 ng/mL A This test provides only a preliminary test result. A morespecific alternate chemical method must be used in order toobtain a confirmed analytical result. Gas chromatography/mass spectrometry (GC/MS) is thepreferred confirmatory method. Other chemical confirmationmethods are available. Clinical consideration and professional judgment should be applied to any drug of abusetest result, particularly when preliminary positive resultsare used.Unconfirmed screening results must not be used fornon-medical purposes (e.g., employment testing, legaltesting). URN AMPHETAMINE (test code = AMPHETURN) NEGATIVE <1000 ng/mL URN BARBITURATE (test code = BARBITURN) NEGATIVE <200 ng/mL URN BENZODIAZEPINE (test code = BENZOURN) NEGATIVE <200 ng/mL URN OPIATES (test code = OPIATURN) NEGATIVE <300 ng/mL URN PHENCYCLIDINE (PCP) (test code = PHENCURN) NEGATIVE <25 ng/ mL URN METHADONE (test code = METHAURN) NEGATIVE <300 ng/mL BASIC METABOLIC [id number] 20:32:00* Test Item Value Reference Range Interpretation Comments SODIUM (test code = NA) 143 mmol/L 136-145 N POTASSIUM (test code = K) 3.9 mmol/L 3.5-5.1 N CHLORIDE (test code = CL) 104.0 mmol/L 98-107 N CARBON DIOXIDE (test code = CO2) 30.0 mmol/L 21-32 N ANION GAP (test code = GAP) 12.9 10-20 N GLUCOSE (test code = GLU) 237 mg/dL 74-106 H BLOOD UREA NITROGEN (test code = BUN) 14 mg/dL 7-18 N GLOMERULAR FILTRATION RATE (test code = GFR) > 60 mL/min >=60 Estimated GFR by using Modified MDRD formula.Chronic kidney disease is defined as either kidney damageor GFR <60 mL/min/1.73 m2 for >3 months. CREATININE (test code = CREAT) 0.70 mg/dL 0.7-1.3 N BUN/CREATININE RATIO (test code = BUN/CREA) 20.0 10-20 N CALCIUM (test code = CA) 8.8 mg/dL 8.5-10.1 N HEPATIC FUNCTION [id number] 20:32:00* Test Item Value Reference Range Interpretation Comments TOTAL PROTEIN (test code = PROT) 7.6 gram/dL 6.4-8.2 N ALBUMIN (test code = ALB) 3.5 g/dL 3.4-5.0 N GLOBULIN (test code = GLOB) 4.1 gram/dL 2.7-4.2 N ALBUMIN/GLOBULIN RATIO (test code = A/G) 0.9 0.75-1.50 N BILIRUBIN TOTAL (test code = BILT) 0.70 mg/dL 0.0-1.0 N BILIRUBIN DIRECT (test code = BILD) 0.16 mg/dL 0.0-0.20 N SGOT/AST (test code = AST) 8 IUnit/L 15-37 L SGPT/ALT (test code = ALT) 19 IUnit/L 12-78 N ALKALINE PHOSPHATASE TOTAL (test code = ALKP) 83 IUnit/L 45-117 N Note change in reference range due to change in reagent. [id number] 20:32:00* Test Item Value Reference Range Interpretation Comments LIPASE (test code = LIP) 135 U/L 73.0-393.0 N [id number] 20:32:00* Test Item Value Reference Range Interpretation Comments TROPONIN-I (test code = TROPI) <0.015 ng/mL 0-0.045 N BASIC METABOLIC [id number] 20:23:00* Test Item Value Reference Range Interpretation Comments SODIUM (test code = NA) 143 mmol/L 136-145 N POTASSIUM (test code = K) 3.9 mmol/L 3.5-5.1 N CHLORIDE (test code = CL) 104.0 mmol/L 98-107 N CARBON DIOXIDE (test code = CO2) mmol/L 21-32 ANION GAP (test code = GAP) 10-20 GLUCOSE (test code = GLU) mg/dL 74-106 BLOOD UREA NITROGEN (test code = BUN) mg/dL 7-18 GLOMERULAR FILTRATION RATE (test code = GFR) mL/min >=60 CREATININE (test code = CREAT) mg/dL 0.7-1.3 BUN/CREATININE RATIO (test code = BUN/CREA) 10-20 CALCIUM (test code = CA) mg/dL 8.5-10.1 HEPATIC FUNCTION [id number] 20:23:00* Test Item Value Reference Range Interpretation Comments TOTAL PROTEIN (test code = PROT) gram/dL 6.4-8.2 ALBUMIN (test code = ALB) g/dL 3.4-5.0 GLOBULIN (test code = GLOB) gram/dL 2.7-4.2 ALBUMIN/GLOBULIN RATIO (test code = A/G) 0.75-1.50 BILIRUBIN TOTAL (test code = BILT) mg/dL 0.0-1.0 BILIRUBIN DIRECT (test code = BILD) mg/dL 0.0-0.20 SGOT/AST (test code = AST) IUnit/L 15-37 SGPT/ALT (test code = ALT) IUnit/L 12-78 ALKALINE PHOSPHATASE TOTAL (test code = ALKP) IUnit/L 45-117 [id number] 20:23:00* Test Item Value Reference Range Interpretation Comments LIPASE (test code = LIP) U/L 73.0-393.0 [id number] 20:23:00* Test Item Value Reference Range Interpretation Comments TROPONIN-I (test code = TROPI) ng/mL 0-0.045 CBC W/O [id number] 20:19:00* Test Item Value Reference Range Interpretation Comments WHITE BLOOD CELL (test code = WBC) 7.4 K/mm3 4.5-12.5 N RED BLOOD CELL (test code = RBC) 5.32 mill/mm3 4.0-5.8 N HEMOGLOBIN (test code = HGB) 16.2 gram/dL 13.0-17.5 N HEMATOCRIT (test code = HCT) 44.8 % 42.0-52.0 N MEAN CELL VOLUME (test code = MCV) 84.2 fL 80-98 N MEAN CELL HGB (test code = MCH) 30.5 picogram 27.0-33.0 N MEAN CELL HGB CONCETRATION (test code = MCHC) 36.2 gram/dL 33.0-36. 0 H RED CELL DISTRIBUTION WIDTH (test code = RDW) 12.4 % 11.6-16. 2 N PLATELET COUNT (test code = PLT) 219 K/mm3 150-450 N MEAN PLATELET VOLUME (test code = MPV) 10.2 fL 6.7-11.0 N CBC W/O [id number] 20:17:00* Test Item Value Reference Range Interpretation Comments WHITE BLOOD CELL (test code = WBC) K/mm3 4.5-12.5 RED BLOOD CELL (test code = RBC) mill/mm3 4.0-5.8 HEMOGLOBIN (test code = HGB) 16.2 gram/dL 13.0-17.5 N HEMATOCRIT (test code = HCT) 44.8 % 42.0-52.0 N MEAN CELL VOLUME (test code = MCV) fL 80-98 MEAN CELL HGB (test code = MCH) picogram 27.0-33.0 MEAN CELL HGB CONCETRATION (test code = MCHC) gram/dL 33.0-36. 0 RED CELL DISTRIBUTION WIDTH (test code = RDW) % 11.6-16. 2 PLATELET COUNT (test code = PLT) K/mm3 150-450 MEAN PLATELET VOLUME (test code = MPV) fL 6.7-11.0 URINALYSIS [id number] 20:17:00* Test Item Value Reference Range Interpretation Comments UA COLOR (test code = COLU) Light-Yellow YELLOW UA APPEARANCE (test code = APPU) CLEAR CLEAR UA GLUCOSE DIPSTICK (test code = DGLUU) >1000 (4+) mg/dL NEGATIVE UA BILIRUBIN DIPSTICK (test code = BILU) NEGATIVE mg/dL NEGATIVE UA KETONE DIPSTICK (test code = KETU) 100 (3+) mg/dL NEGATIVE A UA SPECIFIC GRAVITY (test code = SGU) >1.050 1.001-1.035 UA BLOOD DIPSTICK (test code = DARRYL) Negative mg/dL NEGATIVE UA PH DIPSTICK (test code = NATANAEL) 5.5 5.0-8.0 UA PROTEIN DIPSTICK (test code = PROU) 10 (Trace) mg/dL NEGATIVE A UA UROBILINIOGEN DIPSTICK (test code = URO) Normal mg/dL NEGATIVE UA NITRITE DIPSTICK (test code = ELDON) NEGATIVE NEGATIVE UA LEUKOCYTE ESTERASE W REFLEX (test code = LEUUR) NEGATIVE Lauren/uL NEGATIVE UA WBC (test code = WBCU) 0-5 per HPF 0-5 UA RBC (test code = RBCU) 0-2 #/HPF 0-5 UA EPITHELIAL CELLS (test code = EPIU) FEW per HPF FEW UA BACTERIA (test code = BACU) FEW #/HPF NONE UA HYALINE CAST (test code = HYALU) 0-2 #/LPF 0-5 UA MUCUS (test code = MUCU) FEW #/LPF FEW Urine Source? Clean CatchBedside [id number] 02:23:00* Test Item Value Reference Range Interpretation Comments Bedside Glucose (test code = 78716-2) 297 70-120 H Meter ID: [id number] [facility] 2019-10-07 02:01:00 [facility] [address] [place] [address] Patient Name: VAUGHN LARSON MR #: [id number] : 1975 Age/Sex: 44/M Req #: [id number] Adm Physician: Ordered by: ANSON CERDA MD Report #: [id number] Location: ER Room/Bed: Procedure: [id number]/CT ABDOMEN/PELVIS W Exam Date: Exam Time: REPORT STATUS: Signed EXAM: CT Ab domen and Pelvis WITH contrast INDICATION: llq pain Y COMPARISON: None . TECHNIQUE: Abdomen and pelvis were scanned utilizing a multidetector helical scanner from the lung base to the pubic symphysis after administration of IV contrast. Coronal and sagittal reformations were obtained. Routine protocol was performed. Scan was performed when during portal venous phase. IV CONTRAST: 100 mL of Isovue 370 ORAL CONTRAST: Gastrografin COMPLICATIONS: None RADIATION DOSE: Total DLP: 184 mGy*cm Estimated effective dose: (DLP x 0.015 x size factor) mSv CTDIvol has be en reviewed. It is below the limits set by the Radiation Protocol Committee (R PC). Dose modulation, iterative reconstruction, and/or weight based adjus tment of the mA/kV was utilized to reduce the radiation dose to as low as reas onably achievable. FINDINGS: LINES and TUBES: None. LOWER THOR AX: Unremarkable HEPATOBILIARY: No focal hepatic lesions. No biliary ductal dilation. GALLBLADDER: No radio-opaque stones or sludge. No wall t hickening. SPLEEN: No splenomegaly. PANCREAS: No focal masses or duct al dilatation. ADRENALS: No adrenal nodules KIDNEYS/URETERS: Kid neys enhance symmetrically. No hydronephrosis. No cystic or solid mass lesion s. No stones. GI TRACT: No abnormal distention, wall thickening, or eviden ce of bowel obstruction. Appendix is normal. PELVIC ORGANS/BLADDER: Unremarkable. LYMPH NODES: No lymphadenopathy. VESSELS: Unremarkable. PERITONEUM / RETROPERITONEUM: No free air or fluid. BONES: Unremarkab le. SOFT TISSUES: Unremarkable. IMPRESSION: No acute CT abnormality in the abdomen or pelvis. Signed by: Marcos Fleming DO on 10/07/2019 2:06 AM Dictated By: MARCOS FLEMING DO 0206 Transcribed By: CINDY on 10/07/19 0 206 COPY TO: ANSON CERDA MD Urine [id number] 00:50:00* Test Item Value Reference Range Interpretation Comments Urine WBC (test code = 5821-4) 11-20 0-5 H [facility] [id number] 00:50:00* Test Item Value Reference Range Interpretation Comments Urine RBC (test code = 55842-7) 0-5 0-5 [facility] [id number] 00:50:00* Test Item Value Reference Range Interpretation Comments Urine Bacteria (test code = 23990-1) FEW NONE [facility] FallsUrine Epithelial [id number] 00:50:00 * Test Item Value Reference Range Interpretation Comments Urine Epithelial Cells (test code = 96485-5) FEW NONE [facility] Falls[facility] [id number] 00:50:00* Test Item Value Reference Range Interpretation Comments Urine Yeast (test code = 65340-4) MANY NONE H [facility] FallsU[facility] [id number] 00:47:00* Test Item Value Reference Range Interpretation Comments Urine Color (test code = 5778-6) YELLOW YELLOW [facility] FallsUrine [id number] 00:47:00* Test Item Value Reference Range Interpretation Comments Urine Clarity (test code = 41722-7) CLEAR CLEAR [facility] Falls[facility]rine Specific [id number] 00:47:00 * Test Item Value Reference Range Interpretation Comments Urine Specific [place] (test code = 5811-5) 1.020 1.010-1.02 5 [facility] [id number] 00:47:00* Test Item Value Reference Range Interpretation Comments Urine pH (test code = 23485-4) 5.5 5-7 [facility] Leukocyte [id number] 00:47:00* Test Item Value Reference Range Interpretation Comments Urine Leukocyte Esterase (test code = 5799-2) NEGATIVE NEGATIVE [facility] Falls[facility] [id number] 00:47:00* Test Item Value Reference Range Interpretation Comments Urine Nitrite (test code = 61613-8) NEGATIVE NEGATIVE [facility] Falls[facility] [id number] 00:47:00* Test Item Value Reference Range Interpretation Comments Urine Protein (test code = 5804-0) NEGATIVE NEGATIVE [facility] Falls[facility]rine Glucose (UA)2019-10-07 00:47:00* Test Item Value Reference Range Interpretation Comments Urine Glucose (UA) (test code = 2349-9) 3+ NEGATIVE H [facility] FallsUrine [id number] 00:47:00* Test Item Value Reference Range Interpretation Comments Urine Ketones (test code = 85553-6) 1+ NEGATIVE H [facility] [id number] 00:47:00* Test Item Value Reference Range Interpretation Comments Urine Urobilinogen (test code = 14881-9) 0.2 0.2-1 [facility] Igjfgcgcz5629-96-04 00:47:00* Test Item Value Reference Range Interpretation Comments Urine Bilirubin (test code = 1978-6) NEGATIVE NEGATIVE [facility] [id number] 00:47:00* Test Item Value Reference Range Interpretation Comments Urine Blood (test code = 88040-5) TRACE NEGATIVE H [facility] FallsAmylase [id number] 00:45:00* Test Item Value Reference Range Interpretation Comments Amylase Level (test code = 1798-8) 82 25-125 [facility] FallsLipase2020-03-26 00:45:00* Test Item Value Reference Range Interpretation Comments Lipase (test code = 3040-3) 82 8-78 H [facility] Kalef1075-35-32 00:24:00* Test Item Value Reference Range Interpretation Comments Sodium Level (test code = 2951-2) 132 136-145 L [facility] FallsPotassium [id number] 00:24:00* Test Item Value Reference Range Interpretation Comments Potassium Level (test code = 2823-3) 4.1 3.5-5.1 [facility] FallsChloride [id number] 00:24:00* Test Item Value Reference Range Interpretation Comments Chloride Level (test code = 2075-0) 98 98-107 [facility] FallsCarbon Dioxide [id number] 00:24:00* Test Item Value Reference Range Interpretation Comments Carbon Dioxide Level (test code = 2028-9) 26 22-29 [facility] FallsAnion [id number] 00:24:00* Test Item Value Reference Range Interpretation Comments Anion Gap (test code = 75311-4) 12.1 8-16 [facility] FallsBlood Urea [id number] 00:24:00* Test Item Value Reference Range Interpretation Comments Blood Urea Nitrogen (test code = 3094-0) 13 7- [facility] FallsCreatinine2020-03-26 00:24:00* Test Item Value Reference Range Interpretation Comments Creatinine (test code = 2160-0) 0.85 0.72-1.25 [facility] FallsBUN/Creatinine [id number] 00:24:00* Test Item Value Reference Range Interpretation Comments BUN/Creatinine Ratio (test code = 3097-3) 15 - [facility] FallsEstimat Glomerular Filtration Rate 2019-10-07 00:24:00* Test Item Value Reference Range Interpretation Comments Estimat Glomerular Filtration Rate (test code = 583347002) > 60 >60 Ranges were taken from the National Kidney Disease Education Program and the [facility] [employer] literature.Reference ranges:60 or greater: Ftffbo14-25 ( for 3 consecutive months): Chronic kidney disease 15 or less: Kidney failureBaylor Scott & [facility] – Marble FallsGlucose Eoelk0598-78-99 00:24:00* Test Item Value Reference Range Interpretation Comments Glucose Level (test code = ZAV3504) 419 74-118 Results repeated and called to JOAN MAN RN at 0024 on 10/07/19 by Johana oliveira. Read back and verified.[facility] FallsCalcium [id number] 00:24:00* Test Item Value Reference Range Interpretation Comments Calcium Level (test code = 16119-0) 8.8 8.4-10.2 [facility] FallsTotal Tytdtwiub8549-44-83 00:24:00* Test Item Value Reference Range Interpretation Comments Total Bilirubin (test code = 1975-2) 0.3 0.2-1.2 [facility] FallsAspartate Amino Transf (AST/SGOT) 2019-10-07 00:24:00* Test Item Value Reference Range Interpretation Comments Aspartate Amino Transf (AST/SGOT) (test code = Aspartate Amino Transf (AST/SGOT)) 11 5-34 [facility] FallsAlanine Aminotransferase (ALT/SGPT) 2019-10-07 00:24:00* Test Item Value Reference Range Interpretation Comments Alanine Aminotransferase (ALT/SGPT) (test code = 1742-6) 16 0-55 [facility] FallsTotal Gmhasbs4393-62-02 00:24:00* Test Item Value Reference Range Interpretation Comments Total Protein (test code = 2885-2) 6.5 6.5-8.1 [facility] FallsAlbumin2020-03-26 00:24:00* Test Item Value Reference Range Interpretation Comments Albumin (test code = 1751-7) 3.5 3.5-5.0 [facility] FallsGlobulin2020-03-26 00:24:00* Test Item Value Reference Range Interpretation Comments Globulin (test code = 85081-7) 3.0 2.3-3.5 [facility] FallsAlbumin/Globulin Rrqjb3417-83-19 00:24:00 * Test Item Value Reference Range Interpretation Comments Albumin/Globulin Ratio (test code = 1759-0) 1.2 0.8-2.0 [facility] FallsAlkaline [id number] 00:24:00* Test Item Value Reference Range Interpretation Comments Alkaline Phosphatase (test code = 6768-6) 68 40-150 [facility] FallsWhite Blood [id number] 00:16:00* Test Item Value Reference Range Interpretation Comments White Blood Count (test code = 6690-2) 9.96 4.8-10.8 [facility] FallsRed Blood [id number] 00:16:00* Test Item Value Reference Range Interpretation Comments Red Blood Count (test code = 789-8) 4.96 4.3-5.7 [facility] FallsHemoglobin2020-03-26 00:16:00* Test Item Value Reference Range Interpretation Comments Hemoglobin (test code = 60337-8) 15.2 14.0-18.0 [facility] FallsHematocrit2020-03-26 00:16:00* Test Item Value Reference Range Interpretation Comments Hematocrit (test code = 4544-3) 40.9 38.2-49.6 [facility] FallsMean Corpuscular [id number] 00:16:00* Test Item Value Reference Range Interpretation Comments Mean Corpuscular Volume (test code = 787-2) 82.5 81-99 [facility] FallsMean Corpuscular Bqvsjscqll2186-72-09 00:16:00* Test Item Value Reference Range Interpretation Comments Mean Corpuscular Hemoglobin (test code = 785-6) 30.6 28-32 [facility] FallsMean Corpuscular Hemoglobin Concent 2019-10-07 00:16:00* Test Item Value Reference Range Interpretation Comments Mean Corpuscular Hemoglobin Concent (test code = 786-4) 37.2 31-35 H [facility] FallsRed Cell Distribution [id number] 00:16:00* Test Item Value Reference Range Interpretation Comments Red Cell Distribution Width (test code = 19303-2) 12.0 11.7 -14.4 [facility] FallsPlatelet [id number] 00:16:00* Test Item Value Reference Range Interpretation Comments Platelet Count (test code = 777-3) 251 140-360 [facility] FallsNeutrophils (%) (Auto)2019-10-07 00:16:00 * Test Item Value Reference Range Interpretation Comments Neutrophils (%) (Auto) (test code = 08907-4) 61.2 38.7-80.0 [facility] FallsLymphocytes (%) (Auto)2019-10-07 00:16:00 * Test Item Value Reference Range Interpretation Comments Lymphocytes (%) (Auto) (test code = 736-9) 29.4 18.0-39.1 [facility] FallsMonocytes (%) (Auto)2019-10-07 00:16:00* Test Item Value Reference Range Interpretation Comments Monocytes (%) (Auto) (test code = 5905-5) 7.7 4.4-11.3 [facility] FallsEosinophils (%) (Auto)2019-10-07 00:16:00 * Test Item Value Reference Range Interpretation Comments Eosinophils (%) (Auto) (test code = 713-8) 1.2 0.0-6.0 [facility] FallsBasophils (%) (Auto)2019-10-07 00:16:00* Test Item Value Reference Range Interpretation Comments Basophils (%) (Auto) (test code = 706-2) 0.2 0.0-1.0 [facility] FallsIM GRANULOCYTES %2019-10-07 00:16:00* Test Item Value Reference Range Interpretation Comments IM GRANULOCYTES % (test code = IM GRANULOCYTES %) 0.3 0.0- 1.0 [facility] FallsNeutrophils # (Auto)2019-10-07 00:16:00* Test Item Value Reference Range Interpretation Comments Neutrophils # (Auto) (test code = 751-8) 6.1 2.1-6.9 [facility] FallsLymphocytes # (Auto)2019-10-07 00:16:00* Test Item Value Reference Range Interpretation Comments Lymphocytes # (Auto) (test code = 23020-3) 2.9 1.0-3.2 [facility] FallsMonocytes # (Auto)2019-10-07 00:16:00* Test Item Value Reference Range Interpretation Comments Monocytes # (Auto) (test code = 742-7) 0.8 0.2-0.8 [facility] FallsEosinophils # (Auto)2019-10-07 00:16:00* Test Item Value Reference Range Interpretation Comments Eosinophils # (Auto) (test code = 711-2) 0.1 0.0-0.4 [facility] FallsBasophils # (Auto)2019-10-07 00:16:00* Test Item Value Reference Range Interpretation Comments Basophils # (Auto) (test code = 704-7) 0.0 0.0-0.1 [facility] FallsAbsolute Immature Granulocyte (auto 2019-10-07 00:16:00* Test Item Value Reference Range Interpretation Comments Absolute Immature Granulocyte (auto (edwin t code = Absolute Immature Granulocyte (auto) 0.03 0-0.1 [facility] FallsCT ABDOMEN AND PELVIS [id number] 12:43:40IMPRESSION: No acute CT finding. Signed By: Misael Daneil MD, 09/20/2019 12:43 PM Interface, Rad/Mammog In - 09/20/2019 12:48 PM CDTTECHNIQUE: CT of the abdomen and pelvis WITH intravenous contrast. The abdomen andpelvis were scanned utilizing a multidetector helical scanner from thediaphragm to the lesser trochanter after the IV administration of 100 ccof omnipaque 300 and the oral administration of none. Coronal andsagittal reformations were obtained.COMPARISON: None available.INDICATION: Abdominal painDISCUSSION:LOWER THORAX: Normal.HEPATOBILIARY: No focal hepatic lesions. No biliary ductal dilatation.SPLEEN: No splenomegaly.PANCREAS: No focal masses or ductal dilatation.ADRENALS: No adrenal nodules.KIDNEYS/URETERS: No hydronephrosis, stones, or solid mass lesions.PELVIC ORGANS/BLADDER: Unremarkable.PERITONEUM / RETROPERITONEUM: No free air or fluid.LYMPH NODES: No lymphadenopathy.VESSELS: Unremarkable.GI TRACT: No distention or wall thickening. The appendix is normal.BONES AND SOFT TISSUES: Unremarkable.IMPRESSIONIMPRESSION: No acute CT finding.Signed By: Misael Daniel MD, 09/20/2019 12:43 PMHarris HealthCBC/Diff 2019-09-20 11:49:00* Test Item Value Reference Range Interpretation Comments WBC (test code = 6690-2) 9.3 K/uL 4.5-12 RBC (test code = 789-8) 5.11 4.60- 6.20 M/uL Hemoglobin (test code = 718-7) 15.5 g/dL 14-18 Hematocrit (test code = 4544-3) 43.0 % 40-54 MCV (test code = 787-2) 84.1 fL 82-92 MCH (test code = 785-6) 30.3 pg 27-31 MCHC (test code = 786-4) 36.0 g/dL 32-36 RDW (test code = 59961-8) 36.5 fL 35.1-43.9 Platelet (test code = 777-3) 229 K/uL 150-400 Mean Platelet Volume (test code = 20003-3) 10.8 fL 9.4-12.4 Percent NRBC (test code = 30744006) 0.0 % Neutrophil (test code = 770-8) 68.5 % 34-67.9 H Lymphs (test code = 736-9) 26.2 % 21.8-50 Monocytes (test code = 5905-5) 4.6 % 5.3-12 L Eos (test code = 713-8) 0.2 % 0.8-5 L Basos (test code = 706-2) 0.2 % 0.2-1.2 Immature Granulocytes (test code = 44845618) 0.3 % 0-0.5 Neutrophils (Absolute) (test code = 97140920) 6.36 K/uL 1.78-5.3 6 H Lymphs (Absolute) (test code = 54765336) 2.44 K/uL 1.32-3.57 Monocytes(Absolute) (test code = 52137831) 0.43 K/uL 0.3-0.82 Eos (Absolute) (test code = 33236460) 0.02 K/uL 0.04-0.54 L Baso (Absolute) (test code = 47846185) 0.02 K/uL 0.01-0.08 Immature Grans (Abs) (test code = 52689772) 0.03 K/uL 0-0.03 Absolute NRBC (test code = 52149170) 0.00 K/uL Lab Interpretation (test code = 06413-9) Abnormal Rivera OrzgpsMfajov9957-26-17 11:31:00* Test Item Value Reference Range Interpretation Comments Lipase (test code = 78770577) 16 U/L 11-82 Lab Interpretation (test code = 76461-6) Normal [facility] BMP POC docked [id number] 10:49:00* Test Item Value Reference Range Interpretation Comments Sodium POC (test code = 37355617) 134 mmol/L 136-145 L Potassium POC (test code = 61810904) 3.9 mmol/L 3.5-5.1 Chloride POC (test code = 68651958) 96 mmol/L 98-107 L TCO2 POC (test code = 11986087) 29 mmol/L 21-32 Physician Notified Urea Nitrogen POC (test code = 02257770) 12 mg/dL 7-18 Glucose POC (test code = 34253964) 292 mg/dL 74-106 H Hemoglobin POC (test code = 26279244) 15.6 g/dL 12-16 Hematocrit POC (test code = 20228579) 46.0 % 37-47 Lab Interpretation (test code = 33677-8) Abnormal [facility] CREATININE POC docked [id number] 10:49:00* Test Item Value Reference Range Interpretation Comments Creatinine POC (test code = 55109114) 0.4 mg/dL 0.6-1.3 L Physician Notified GFR, Estimated (test code = 11703867) >90 >=90 mL/min/1.73 m2 Lab Interpretation (test code = 54321-7) Abnormal [facility]- [facility] ABD PELVIS W/[id number] 13:09:00 Name: JANELVAUGHN [facility] : 1975 Age/S: 43 / M [address] [facility] Unit #: [id number] Loc: [facility] [place] [address] Phys: Avis Jolly MD Acct: [id number] Dis Date: Status: REG ER PHONE #: [phone] Exam Date: 08/09/2018 1254 FAX #: [phone] Reason: ABD PAIN EXAMS: CPT CODE: [id number] CT ABD PELVIS W/CONT 79307 HISTORY: Abdominal pain. COMPARISON: CT scan from July 03, 2018 CT abdomen and pelvis with IV contrast: 100 mL of Isovue-370. Automated exposure control. CT ABDOMEN: The lung bases are clear. Hepatic parenchyma is enhancing homogeneously. Gallbladder is without radiopaque stones. The liver is not enlarged. Spleen is unremarkable with accessory spleen. Stomach distended incompletely with thickened distal esophagus. Pancreas is enhancing homogeneously. Unremarkable adrenals. Kidneys are free from hydroureteronephrosis. Ho mogeneous enhancement. Bilateral excretion is noted. No pat hologic adenopathy. Well-opacified abdominal and pelvic vasculature. No bowel obstruction or colitis or diverticulitis or enteritis. Constipation. CT PELVIS: Appendix is normal. Pelvic bowel loops are unobstructed. Constipation. Unremarkable well-distended urinary bladder. The prostate is not enlarged. No free fl uid or free air or abscess. No pelvic pathologic adenopathy. Subcutaneous tissues and musculature demonstrated normal appearance. No lytic or blastic lesions are noted within the bony skeleton. IM PRESSION: Normal appendix without bowel obstruction or colitis or diverticulitis or enteritis. Constipation. PAGE 1 Signed Report (CONTINUED) Name: ISMA DaughertyVAUGHN [facility] : 1975 Ag e/S: 43 / M [address] [place] [address] Unit #: [id number] Loc: [place] [address] Phys: Avis Jolly MD Acct: [id number] Dis Date: Status: REG ER PHONE #: [phone] Exam Date: 08/09/2018 1254 FAX #: [phone] Reason: ABD PAIN EXAMS: CPT CODE: [id number] CT ABD PELVIS W/CONT 78731 <Continued> No hydroureteronephrosis. Unremarkable well-distended urinary bladder. No free fluid or free air. No abscess. at 1309 Reported and signed by: Naveed Cool M.D. CC: Avis Jolly MD Technologist:Marleni Anthony RT(R),CT; CTDI: DLP: Trnscb Date/Time: 08/09/2018 (1309) [email or web address] Orig Print D/T: S: 08/09/2018 (1312) CTDI: DLP: PAGE 2 Signed Report URINALYSIS COMPLETE 2018-08-09 12:26:00* Test Item Value Reference Range Interpretation Comments UA COLOR (test code = COLU) STRAW YELLOW UA APPEARANCE (test code = APPU) CLEAR CLEAR UA GLUCOSE DIPSTICK (test code = DGLUU) >=500 mg/dL NEGATIVE A UA BILIRUBIN DIPSTICK (test code = BILU) NEGATIVE mg/dL NEGATIVE UA KETONE DIPSTICK (test code = KETU) 5 (Trace) mg/dL NEGATIVE A UA SPECIFIC GRAVITY (test code = SGU) 1.039 1.001-1.035 UA BLOOD DIPSTICK (test code = DARRYL) Negative NEGATIVE UA PH DIPSTICK (test code = NATANAEL) 6.0 5.0-8.0 UA PROTEIN DIPSTICK (test code = PROU) Negative mg/dL NEGATIVE UA UROBILINIOGEN DIPSTICK (test code = URO) NEGATIVE mg/dL NEGATIVE UA NITRITE DIPSTICK (test code = ELDON) NEGATIVE NEGATIVE UA LEUKOCYTE ESTERASE W REFLEX (test code = LEUUR) NEGATIVE NEG ATIVE UA WBC (test code = WBCU) 0-5 #/HPF 0-5 UA RBC (test code = RBCU) 0-3 #/HPF 0-5 UA EPITHELIAL CELLS (test code = EPIU) Few (2-5/hpf) per HPF FEW UA BACTERIA (test code = BACU) FEW #/HPF NONE UA MUCUS (test code = MUCU) FEW #/LPF FEW Urine Source? Clean CatchURINALYSIS [id number] 11:07:00* Test Item Value Reference Range Interpretation Comments UA COLOR (test code = COLU) STRAW YELLOW UA APPEARANCE (test code = APPU) CLEAR CLEAR UA GLUCOSE DIPSTICK (test code = DGLUU) >=500 mg/dL NEGATIVE A UA BILIRUBIN DIPSTICK (test code = BILU) NEGATIVE mg/dL NEGATIVE UA KETONE DIPSTICK (test code = KETU) 5 (Trace) mg/dL NEGATIVE A UA SPECIFIC GRAVITY (test code = SGU) 1.039 1.001-1.035 UA BLOOD DIPSTICK (test code = DARRYL) Negative NEGATIVE UA PH DIPSTICK (test code = NATANAEL) 6.0 5.0-8.0 UA PROTEIN DIPSTICK (test code = PROU) Negative mg/dL NEGATIVE UA UROBILINIOGEN DIPSTICK (test code = URO) NEGATIVE mg/dL NEGATIVE UA NITRITE DIPSTICK (test code = ELDON) NEGATIVE NEGATIVE UA LEUKOCYTE ESTERASE W REFLEX (test code = LEUUR) NEGATIVE NEG ATIVE UA WBC (test code = WBCU) per HPF 0-5 Urine Source? Clean CatchBASIC METABOLIC [id number] 10:07:00* Test Item Value Reference Range Interpretation Comments SODIUM (test code = NA) 134 mmol/L 136-145 L POTASSIUM (test code = K) 3.9 mmol/L 3.5-5.1 N CHLORIDE (test code = CL) 99.0 mmol/L 98-107 N CARBON DIOXIDE (test code = CO2) 28.0 mmol/L 21-32 N ANION GAP (test code = GAP) 10.9 10-20 N GLUCOSE (test code = GLU) 367 mg/dL 74-106 H BLOOD UREA NITROGEN (test code = BUN) 11 mg/dL 7-18 N GLOMERULAR FILTRATION RATE (test code = GFR) > 60 mL/min >=60 Estimated GFR by using Modified MDRD formula.Chronic kidney disease is defined as either kidney damageor GFR <60 mL/min/1.73 m2 for >3 months. CREATININE (test code = CREAT) 0.70 mg/dL 0.7-1.3 N BUN/CREATININE RATIO (test code = BUN/CREA) 16.8 10-20 N CALCIUM (test code = CA) 8.4 mg/dL 8.5-10.1 L HEPATIC FUNCTION [id number] 10:07:00* Test Item Value Reference Range Interpretation Comments TOTAL PROTEIN (test code = PROT) 7.0 gram/dL 6.4-8.2 N ALBUMIN (test code = ALB) 3.3 g/dL 3.4-5.0 L GLOBULIN (test code = GLOB) 3.7 gram/dL 2.7-4.2 N ALBUMIN/GLOBULIN RATIO (test code = A/G) 0.9 0.75-1.50 N BILIRUBIN TOTAL (test code = BILT) 0.60 mg/dL 0.0-1.0 N BILIRUBIN DIRECT (test code = BILD) 0.17 mg/dL 0.0-0.20 N SGOT/AST (test code = AST) 19 IUnit/L 15-37 N SGPT/ALT (test code = ALT) 30 IUnit/L 12-78 N ALKALINE PHOSPHATASE TOTAL (test code = ALKP) 107 IUnit/L 45-117 N Note change in reference range due to change in reagent. [id number] 10:07:00* Test Item Value Reference Range Interpretation Comments LIPASE (test code = LIP) 106 U/L 73.0-393.0 N VENOUS BLOOD [id number] 10:02:00* Test Item Value Reference Range Interpretation Comments VENOUS BLOOD GAS PH (test code = PHV) 7.35 7.30-7.40 N VENOUS BLOOD GAS PCO2 (test code = PCO2V) 51.5 mm Hg 39.0-51.0 H VENOUS BLOOD GAS PO2 (test code = PO2V) < 44.2 mm Hg 30.0-50.0 N VBG HCO3 (test code = HCO3V) 27.5 mmol/L 17.0-30.0 N VBG BASE EXCESS (test code = LIDIA) 0.9 mmol/L -5.0-5.0 N VENOUS BLOOD GAS O2 SAT. (test code = O2SATV) 64 % 94-98 LL VENOUS BLOOD GAS FIO2 (test code = FIO2V) 21.0 PT. HGB (test code = PHGBVBG) 15.0 gram/dL 13.0-17.5 N VENOUS BLOOD GAS SITE (test code = SITEV) IVC HEMATOCRIT (test code = HCT/VBG) 44 % 42-52 N HGB O2 SAT (test code = HBOSAT) 62.9 % 94.00-98.00 LL CARBOXYHEMOGLOBIN (test code = HOHGBT) 0.8 %totalHg 0.5-1.5 N METHEMOGLOBIN (test code = METHGB) 0.5 % 0.0-1.50 N BASIC METABOLIC [id number] 10:02:00* Test Item Value Reference Range Interpretation Comments SODIUM (test code = NA) 134 mmol/L 136-145 L POTASSIUM (test code = K) 3.9 mmol/L 3.5-5.1 N CHLORIDE (test code = CL) 99.0 mmol/L 98-107 N CARBON DIOXIDE (test code = CO2) mmol/L 21-32 ANION GAP (test code = GAP) 10-20 GLUCOSE (test code = GLU) mg/dL 74-106 BLOOD UREA NITROGEN (test code = BUN) mg/dL 7-18 GLOMERULAR FILTRATION RATE (test code = GFR) mL/min >=60 CREATININE (test code = CREAT) mg/dL 0.7-1.3 BUN/CREATININE RATIO (test code = BUN/CREA) 10-20 CALCIUM (test code = CA) mg/dL 8.5-10.1 HEPATIC FUNCTION [id number] 10:02:00* Test Item Value Reference Range Interpretation Comments TOTAL PROTEIN (test code = PROT) gram/dL 6.4-8.2 ALBUMIN (test code = ALB) g/dL 3.4-5.0 GLOBULIN (test code = GLOB) gram/dL 2.7-4.2 ALBUMIN/GLOBULIN RATIO (test code = A/G) 0.75-1.50 BILIRUBIN TOTAL (test code = BILT) mg/dL 0.0-1.0 BILIRUBIN DIRECT (test code = BILD) mg/dL 0.0-0.20 SGOT/AST (test code = AST) IUnit/L 15-37 SGPT/ALT (test code = ALT) IUnit/L 12-78 ALKALINE PHOSPHATASE TOTAL (test code = ALKP) IUnit/L 45-117 [id number] 10:02:00* Test Item Value Reference Range Interpretation Comments LIPASE (test code = LIP) U/L 73.0-393.0 CBC W/O [id number] 10:02:00* Test Item Value Reference Range Interpretation Comments WHITE BLOOD CELL (test code = WBC) 7.9 K/mm3 4.5-12.5 N RED BLOOD CELL (test code = RBC) 4.77 mill/mm3 4.0-5.8 N HEMOGLOBIN (test code = HGB) 14.2 gram/dL 13.0-17.5 N HEMATOCRIT (test code = HCT) 40.0 % 42.0-52.0 L MEAN CELL VOLUME (test code = MCV) 83.9 fL 80-98 N MEAN CELL HGB (test code = MCH) 29.8 picogram 27.0-33.0 N MEAN CELL HGB CONCETRATION (test code = MCHC) 35.5 gram/dL 33.0-36. 0 N RED CELL DISTRIBUTION WIDTH (test code = RDW) 12.4 % 11.6-16. 2 N PLATELET COUNT (test code = PLT) 221 K/mm3 150-450 N MEAN PLATELET VOLUME (test code = MPV) 10.8 fL 6.7-11.0 N - XR CHEST 1 [id number] 09:42:00 FAX: Avis Jolly MD [phone] [place]: St: REG Name: VAUGHN PATTERSON [facility] : [birth year] Age/S: 43/M [address] [facility] Unit #: [id number] Loc: [place] [address] Phys: Avis Jolly MD Acct: [id number] Dis Date: Status: REG ER PHONE #: [phone] Exam Date: 08/09/2018927 FAX #: [phone] Reason: ABDOMINAL PAIN EXAMS: CPT CODE: [id number] XR CHEST 1 V 73769 HISTORY: Abdominal pain. COMPARISON: February 19, 2017. No acute infiltrates, effusion or congestion is noted. The cardiac and mediastinal silhouette are w ithin normal limits. IMPRESSION: No acute in filtrates, effusion or congestion. at 0942 Reported and signed by: Naveed Cool M.D. CC: Avis Jolly MD Technologist: Shakeel Lancaster RT(R); Cindy Haywood RT(R) Trnscrd Date/Time/By: 08/09/2018 (6042) : By: [email or web address] Orig Print D/T: S: 08/09/2018 (5779) PAGE 1 Signed Report
[2019-12-14] MEDS ORDERED: KETOROLAC TROMETHAMINE 30 MG/ML VIAL IV STA (21:41)
[2019-12-14 21:57] LABS: BASOPHILS % 0.1 % (0.0-1.0); EOSINOPHILS # (AUTO) 0.1 (0.0-0.4); EOSINOPHILS % 1.2 % (0.0-6.0); HEMATOCRIT 44.6 % (38.2-49.6); HEMOGLOBIN 15.8 g/dL (14.0-18.0); LYMPHOCYTES # (AUTO) 2.3 (1.0-3.2); LYMPHOCYTES % 30.1 % (18.0-39.1); MEAN CORPUSCULAR HEMOGLOBIN 29.8 pg (28-32); MEAN CORPUSCULAR HGB CONC 35.4 g/dL (31-35); MONOCYTES # (AUTO) 0.7 (0.2-0.8); MONOCYTES % 8.7 % (4.4-11.3); NEUTROPHILS # (AUTO) 4.6 (2.1-6.9); NEUTROPHILS % 59.5 % (38.7-80.0); PLATELET COUNT 239 x10e3/uL (140-360); RED BLOOD COUNT 5.31 x10e6/uL (4.3-5.7); RED CELL DISTRIBUTION WIDTH 12.3 % (11.7-14.4)
--- NOTE | 2019-12-14 21:57 | Emergency Department Note ---
History of Present Illnes History of Present Illness Chief Complaint: Abdominal Complaints History of Present Illness This is a 44 year old malePRESENTS TO THE ER VIA EMS FROM HOME C/O LLQ ABD PAIN RADIATING TO LT LOWER BACK ONSET X2 YEARS AGO BUT WORSENING TODAY AROUND 1000; PT REPORTS HAVING A COLONOSCOPY X3 WEEKS AGO AND HAD HEMMORROIDECTOMY; PT DENIES N/V/D, FEVER/CHILLS; LAST BM TODAY . Historian: Patient, Internet Sales Representative/EMS Arrival Mode: [place] Additional Treatment DESIGN TRANSFERRER: 20G IV CATH LT AC Onset (how long ago): year(s) (2) Location: LEFT ABDOMEN Quality: PAIN Radiation: other (LEFT THIGH) Severity: severe Onset quality: unable to specify (CHRONIC FOR 2 YEARS) Duration (how long): month(s) (24) Timing of current episode: constant Progression: worsening Chronicity: chronic Context: recent illness; recent surgery (COLONOSCOPY AND HEMMORHOIDECTOMY 3 WEEKS AGO) Relieving factors: none Exacerbating factors: none Associated symptoms: denies other symptoms Treatments prior to arrival: none Past Medical/Family History Physician Review I have reviewed the patient's past medical and family history. Any updates have been documented here. Past Medical History Recent Fever: No Clinical Suspicion of Infectio: No New/Unexplained Change in Ment: No Past Medical History: Diabetes, Anemia, Hyperlipedemia Other Medical History: HIGH CHOLESTEROL Other Surgery: FINGER SX HEMMOROIDECTOMY Social History Smoking Cessation: Never Smoker Alcohol Use: Occasional Any Illegal Drug Use: No Other Last Tetanus: utd Review of Systems Review of Systems Constitutional: no symptoms EENTM: no symptoms Cardiovascular: no symptoms Respiratory: no symptoms Gastrointestinal: as per HPI Genitourinary: no symptoms Musculoskeletal: no symptoms Neurological: no symptoms Psychological: no symptoms Endocrine: no symptoms Hematological/Lymphatic: no symptoms Review of other systems All other systems reviewed and negative. Physical Exam Related Data Allergies: Coded Allergies: metformin (Verified Allergy, Intermediate, constipation, 10/06/19) Triage Vital Signs Vital Signs Date Time Temp Pulse Resp B/P (MAP) Pulse Ox O2 Delivery O2 Flow Rate FiO2 12/14/19 21:32 98.0 109 20 131/102 99 Vital signs reviewed: Yes Physical Exam CONSTITUTIONAL Constitutional: well-developed, well-nourished HENT HENT: normocephalic, atraumatic, oropharynx clear/moist, nose normal HENT L/R: left ext ear normal, right ext ear normal EYES Eyes: PERRL, conjunctivae normal NECK Neck: ROM normal PULMONARY Pulmonary: effort normal, breath sounds normal CARDIOVASCULAR Cardiovascular: regular rhythm, heart sounds normal, capillary refill normal, normal rate GASTROINTESTINAL Abdominal: soft, bowel sounds normal, tender (LUQ, LLQ, NO REBOUND, NON DISTENDED); guarding, rebound, hernia, left CVA tenderness GENITOURINARY Genitourinary: exam deferred SKIN Skin: warm, dry MUSCULOSKELETAL Musculoskeletal: ROM normal NEUROLOGICAL Neurological: alert, oriented x 3, no gross motor or sensory deficits PSYCHOLOGICAL Psychological: mood/affect normal, judgement normal Results Laboratory Laboratory Laboratory Tests Test 12/14/19 21:50 12/14/19 21:45 Urine Color Yellow (YELLOW) Urine Clarity Sl cloudy (CLEAR) Urine pH 6 (5 - 7) Urine Specific Lee 1.025 (1.010-1.025) Urine Protein Trace (NEGATIVE) Urine Glucose (UA) 3+ (NEGATIVE) Urine Ketones Trace (NEGATIVE) Urine Blood Negative (NEGATIVE) Urine Nitrite Negative (NEGATIVE) Urine Bilirubin Negative (NEGATIVE) Urine Urobilinogen 1 mg/dL (0.2 - 1) Urine Leukocyte Esterase Negative (NEGATIVE) Urine RBC None /HPF (0-5) Urine WBC None /HPF (0-5) Urine Epithelial Cells None /LPF (NONE) Urine Calcium Oxalate Crystals Moderate (FEW) Urine Amorphous Sediment Few (FEW) Urine Bacteria Few /HPF (NONE) White Blood Count 7.72 x10e3/uL (4.8-10.8) Red Blood Count 5.31 x10e6/uL (4.3-5.7) Hemoglobin 15.8 g/dL (14.0-18.0) Hematocrit 44.6 % (38.2-49.6) Mean Corpuscular Volume 84.0 fL (81-99) Mean Corpuscular Hemoglobin 29.8 pg (28-32) Mean Corpuscular Hemoglobin Concent 35.4 g/dL (31-35) Red Cell Distribution Width 12.3 % (11.7-14.4) Platelet Count 239 x10e3/uL (140-360) Neutrophils (%) (Auto) 59.5 % (38.7-80.0) Lymphocytes (%) (Auto) 30.1 % (18.0-39.1) Monocytes (%) (Auto) 8.7 % (4.4-11.3) Eosinophils (%) (Auto) 1.2 % (0.0-6.0) Basophils (%) (Auto) 0.1 % (0.0-1.0) Neutrophils # (Auto) 4.6 (2.1-6.9) Lymphocytes # (Auto) 2.3 (1.0-3.2) Monocytes # (Auto) 0.7 (0.2-0.8) Eosinophils # (Auto) 0.1 (0.0-0.4) Basophils # (Auto) 0.0 (0.0-0.1) Absolute Immature Granulocyte (auto 0.03 x10e3/uL (0-0.1) Sodium Level 134 mmol/L (136-145) Potassium Level 3.9 mmol/L (3.5-5.1) Chloride Level 99 mmol/L (98-107) Carbon Dioxide Level 26 mmol/L (22-29) Anion Gap 12.9 mmol/L (8-16) Blood Urea Nitrogen 13 mg/dL (7-26) Creatinine 0.81 mg/dL (0.72-1.25) Estimat Glomerular Filtration Rate > 60 ML/MIN (60-) BUN/Creatinine Ratio 16 (6-25) Glucose Level 257 mg/dL (74-118) Calcium Level 9.4 mg/dL (8.4-10.2) Total Bilirubin 0.6 mg/dL (0.2-1.2) Aspartate Amino Transf (AST/SGOT) 10 IU/L (5-34) Alanine Aminotransferase (ALT/SGPT) 10 IU/L (0-55) Alkaline Phosphatase 80 IU/L (40-150) Total Protein 7.2 g/dL (6.5-8.1) Albumin 4.0 g/dL (3.5-5.0) Globulin 3.2 g/dL (2.3-3.5) Albumin/Globulin Ratio 1.3 (0.8-2.0) Amylase Level 64 U/L (25-125) Lipase 33 U/L (8-78) Lab results reviewed: Yes Imaging Imaging results reviewed: Yes Impressions Procedure: [id number] DX/ABDOMEN 2 VIEW Exam Date: Exam Time: REPORT STATUS: Signed Two view abdomen series. CPT 32686 CLINICAL HISTORY: Chronic left abdominal pain TECHNIQUE: Flat and upright views of the abdomen obtained. COMPARISON: CT abdomen/pelvis 10/07/2019. Medical Devices: None Bowel: Unremarkable bowel gas pattern. No dilated bowel loops or air-fluid levels. No significant stool burden in the large bowel. Calcifications: None over the renal shadows or along the expected course of the ureters. Stable left pelvic intraperitoneal calcification. Organomegaly: None Free air: None Lung bases: Clear Bones: Stable bone island in the left femoral head IMPRESSION: Unremarkable bowel gas pattern. Signed by: Dr. Lali Robison MD on 12/14/2019 10:13 PM Dictated By: LALI ROBISON MD 12 Transcribed By: CINDY on 12/14/192212 Critical Care Time Subsequent provider I assumed direction of critical care for this patient from another provider of my specialty. Assessment & Plan Assessment & Plan Final Impression: (1) OTHER CHRONIC PAIN (2) UNSPECIFIED ABDOMINAL PAIN Assessment & Plan PT WITH CHRONIC LEFT ABDOMINAL PAIN THAT RADIATES TO LEFT THIGH FOR 2 YEARS, STATES WORSE TODAY CBC, CMP, AMYLASE, LIPASE, UA, FLAT AND UPRIGHT KUB ORDERED TO EVAL FOR PANCREATITIS, HEMATURIA, UTI, FREE AIR UNDER DIAPHRAGM, BOWEL OBSTRUCTION, CONSTIPATION TORADOL 30 MG IV ORDERED PT'S WORK UP UNREMARKABLE WITH EXCEPTION OF ELEVATED GLUCOSE, PT IS A DIABETIC PT DISCHARGED TO FOLLOW UP WITH HIS GI DOCTOR FOR FURTHER EVAL OF HIS CHRONIC ABD PAIN SCRIPT FOR BENTYL 20 MG ONE PO Q 6 HOURS PRN ABD PAIN #29 Depart Disposition: HOME, SELF-CARE Last Vital Signs Date Time Temp Pulse Resp B/P (MAP) Pulse Ox O2 Delivery O2 Flow Rate FiO2 12/14/19 21:32 98.0 109 20 131/102 99 Home Meds Reported Medications Naproxen (NAPROXEN) 250 Mg Tablet, 500 MG PO BID PRN for PAIN, TAB 06/16/17 Cephalexin Monohydrate (KEFLEX) 500 Mg Capsule, 500 MG PO Q6H 06/16/17 Insulin Detemir (LEVEMIR) 100 Unit/1 Ml Vial, 15 UNITS SC BID 02/11/17 Medications in the ED Ketorolac Tromethamine 30 mg ONCE STAT IV Last administered on 6/2/20at 21:51; Admin Dose 30 MG; Start 12/14/19 at 21:41; Stop 12/14/19 at 21:44; Status DC ANSON CERDA MD Dec 14, 2019 21:57
[2019-12-14 22:02] LABS: BILIRUBIN,URINE NEGATIVE (NEGATIVE); CLARITY,URINE SL CLOUDY (CLEAR); COLOR,URINE YELLOW (YELLOW); KETONES,URINE TRACE (NEGATIVE); LEUKOCYTE ESTERASE ,URINE NEGATIVE (NEGATIVE); NITRITE,URINE NEGATIVE (NEGATIVE); PROTEIN,URINE DIPSTICK TRACE (NEGATIVE); URINE UROBILINOGEN 1 mg/dL (0.2 - 1)
[2019-12-14 22:12] LABS: AMORPHOUS SEDIMENT,URINE FEW (FEW); BACTERIA,URINE FEW /HPF; CALCIUM OXALATE CRYSTALS,UR MODERATE (FEW)
[2019-12-14 22:15] LABS: ALANINE AMINOTRANSFERASE 10 IU/L (0-55); ALBUMIN/GLOBULIN RATIO 1.3 (0.8-2.0); ALKALINE PHOSPHATASE 80 IU/L (40-150); AMYLASE 64 U/L (25-125); ANION GAP 12.9 mmol/L (8-16); BLOOD UREA NITROGEN 13 mg/dL (7-26); BUN/CREATININE RATIO 16 (6-25); CALCIUM 9.4 mg/dL (8.4-10.2); CARBON DIOXIDE 26 mmol/L (22-29); CHLORIDE 99 mmol/L (98-107); CREATININE, SERUM 0.81 mg/dL (0.72-1.25); EST GLOMERULAR FILTRATION RATE > 60 ML/MIN (60-); GLUCOSE 257 mg/dL (74-118); LIPASE 33 U/L (8-78); POTASSIUM 3.9 mmol/L (3.5-5.1); SODIUM 134 mmol/L (136-145)
--- NOTE | 2019-12-14 22:17 | Diagnostic Imaging Report ---
Two view abdomen series. CPT 53889 CLINICAL HISTORY: Chronic left abdominal pain TECHNIQUE: Flat and upright views of the abdomen obtained. COMPARISON: CT abdomen/pelvis 10/07/2019. Medical Devices: None Bowel: Unremarkable bowel gas pattern. No dilated bowel loops or air-fluid levels. No significant stool burden in the large bowel. Calcifications: None over the renal shadows or along the expected course of the ureters. Stable left pelvic intraperitoneal calcification. Organomegaly: None Free air: None Lung bases: Clear Bones: Stable bone island in the left femoral head IMPRESSION: Unremarkable bowel gas pattern. Signed by: Dr. Arianna Robison MD on 12/14/2019 10:13 PM
== END 2019-12-14 23:45 | disposition home or self-care (01) ==
LOC: ER 21:23
DX: R10.32 Left lower quadrant pain (principal); M54.5 Low back pain; M79.652 Pain in left thigh; G89.29 Other chronic pain; E11.65 Type 2 diabetes mellitus with hyperglycemia; E78.5 Hyperlipidemia, unspecified; D64.9 Anemia, unspecified
CPT/HCPCS: 36415; 74019; 80053; 81001; 82150; 83690; 85025; 99284; J1885

== ENCOUNTER 2024-01-27 15:00 | Emergency (ER) | payer OTHER ==
[~2024-01-27] VITALS: Ht 160 cm; Wt 52.2 kg
[~2024-01-27 15:00] MED LIST changes: +CIPRO500 MG PO; +HUMALOG SC; +LANTUS 3ML100 UNITS/ SC; +LEVOFLOXACIN250 MG PO; +NOVOLOG MI100 UNIT/1 SC; +REGLAN5 MG PO
[2024-01-27 15:11] VITALS: TEMP 99
[2024-01-27 15:49] LABS: BASOPHILS % 0.2 % (0.0-1.0); EOSINOPHILS # (AUTO) 0.1 (0.0-0.4); EOSINOPHILS % 1.7 % (0.0-6.0); HEMATOCRIT 34.5 % (38.2-49.6); LYMPHOCYTES % 21.3 % (18.0-39.1); MEAN CORPUSCULAR HEMOGLOBIN 28.6 pg (28-32); MEAN CORPUSCULAR HGB CONC 34.8 g/dL (31-35); MEAN CORPUSCULAR VOLUME 82.3 fL (81-99); MONOCYTES # (AUTO) 0.6 (0.2-0.8); NEUTROPHILS % 63.6 % (38.7-80.0); PLATELET COUNT 211 x10e3/uL (140-360); RED BLOOD COUNT 4.19 x10e6/uL (4.3-5.7); RED CELL DISTRIBUTION WIDTH 12.6 % (11.7-14.4)
[2024-01-27] MEDS: KETOROLAC TROMETHAMINE 30 MG/ML VIAL IV STA (15:55)
[2024-01-27] MEDS: SODIUM CHLORIDE 0.9% 1000ML 1,000 ML IV ONE (15:56)
[2024-01-27] MEDS: ONDANSETRON HCL INJ 2MG/ML 2ML 2 MG/ML VIAL IV STA (15:56)
[2024-01-27 16:06] LABS: ALBUMIN 2.8 g/dL (3.5-5.0); ALBUMIN/GLOBULIN RATIO 0.8 (0.8-2.0); ANION GAP 13.3 mmol/L (8-16); BILIRUBIN,TOTAL 0.4 mg/dL (0.2-1.2); CALCIUM 8.2 mg/dL (8.4-10.2); CREATININE, SERUM 0.82 mg/dL (0.72-1.25); POTASSIUM 4.3 mmol/L (3.5-5.1); TOTAL PROTEIN 6.2 g/dL (6.5-8.1)
[2024-01-27] MEDS ORDERED: IOPAMIDOL 370 MG/ML 100 ML INFUS..BTL INJ ONE (16:25)
[2024-01-27] MEDS: INSULIN REGULAR, HUMAN 100 UNIT/1 ML SQ ONE (16:54)
[2024-01-27 17:38] VITALS: PULSE 90; RESP 18
[2024-01-27 17:48] LABS: CLARITY,URINE CLEAR (CLEAR); COLOR,URINE YELLOW (YELLOW); LEUKOCYTE ESTERASE ,URINE NEGATIVE (NEGATIVE); PH,URINE 5.5 (5 - 7)
[2024-01-27 17:49] LABS: BILIRUBIN,URINE NEGATIVE (NEGATIVE); GLUCOSE, URINE 500 (NEGATIVE); KETONES,URINE NEGATIVE (NEGATIVE); NITRITE,URINE NEGATIVE (NEGATIVE); PROTEIN,URINE DIPSTICK 2+ (NEGATIVE); URINE UROBILINOGEN 0.2 mg/dL (0.2 - 1)
[2024-01-27 18:02] LABS: TRANSITIONAL EPI CELLS,URINE MODERATE
[2024-01-27] MEDS ORDERED: DICYCLOMINE HCL20 MG PO (18:14)
[2024-01-27] MEDS ORDERED: ONDANSETRON ODT4 MG PO (18:14)
[2024-01-27] MEDS: DICYCLOMINE HCL 20 MG/2 ML VIAL IM ONE (18:22)
[2024-01-27 19:29] VITALS: BP 136/92; PULSE 92; RESP 16; TEMP 99; O2SAT 98
== END 2024-01-27 19:00 | disposition home or self-care (01) ==
LOC: ER 15:03
DX: K52.9 Noninfective gastroenteritis and colitis, unspecified (principal); E11.65 Type 2 diabetes mellitus with hyperglycemia; Z79.4 Long term (current) use of insulin; I10 Essential (primary) hypertension; E78.5 Hyperlipidemia, unspecified; D64.9 Anemia, unspecified
CPT/HCPCS: 36415; 74177; 80053; 81001; 82948; 83690; 85025; 99284; J0500; J1885; J2405; J7030; Q9967

== ENCOUNTER 2024-06-06 10:47 | Emergency (ER) | payer OTHER ==
[~2024-06-06] VITALS: Ht 160 cm; Wt 52.2 kg
[~2024-06-06 10:47] MED LIST changes: +CEFDINIR300 MG PO; +DICYCLOMINE HCL20 MG PO; +ONDANSETRON ODT4 MG PO
[2024-06-06 10:50] VITALS: PULSE 81; RESP 15; TEMP 97.9; O2SAT 99
[2024-06-06 11:20] LABS: BASOPHILS % 0.2 % (0.0-1.0); EOSINOPHILS # (AUTO) 0.1 (0.0-0.4); EOSINOPHILS % 2.4 % (0.0-6.0); HEMATOCRIT 29.6 % (38.2-49.6); HEMOGLOBIN 9.7 g/dL (14.0-18.0); LYMPHOCYTES # (AUTO) 1.3 (1.0-3.2); LYMPHOCYTES % 25.4 % (18.0-39.1); MEAN CORPUSCULAR HEMOGLOBIN 28.4 pg (28-32); MEAN CORPUSCULAR HGB CONC 32.8 g/dL (31-35); MEAN CORPUSCULAR VOLUME 86.8 fL (81-99); MONOCYTES # (AUTO) 0.4 (0.2-0.8); MONOCYTES % 8.5 % (4.4-11.3); NEUTROPHILS # (AUTO) 3.1 (2.1-6.9); NEUTROPHILS % 63.3 % (38.7-80.0); PLATELET COUNT 193 x10e3/uL (140-360); RED BLOOD COUNT 3.41 x10e6/uL (4.3-5.7); RED CELL DISTRIBUTION WIDTH 13.5 % (11.7-14.4); WHITE BLOOD COUNT 4.96 x10e3/uL (4.8-10.8)
[2024-06-06] MEDS: ONDANSETRON HCL INJ 2MG/ML 2ML 2 MG/ML VIAL IV STA (11:26)
[2024-06-06] MEDS: DEXTROSE 5%/0.45% SOD CHL 1,000 ML IV ONE (11:26)
[2024-06-06] MEDS: DEXTROSE 50% SYRINGE 50 ML IV ONE (11:29)
[2024-06-06 11:34] LABS: INR 0.94; PROTHROMBIN TIME 13.2 seconds (11.9-14.5)
[2024-06-06 11:35] LABS: PARTIAL THROMBOPLASTIN TIME 28.2 seconds (23.8-35.5)
[2024-06-06 11:43] LABS: ALBUMIN 2.7 g/dL (3.5-5.0); ALBUMIN/GLOBULIN RATIO 0.8 (0.8-2.0); ANION GAP 12.8 mmol/L (8-16); BILIRUBIN,TOTAL 0.4 mg/dL (0.2-1.2); CALCIUM 8.8 mg/dL (8.4-10.2); CREATININE, SERUM 0.72 mg/dL (0.72-1.25); MAGNESIUM 1.9 MG/DL (1.3-2.1); POTASSIUM 3.8 mmol/L (3.5-5.1); TOTAL PROTEIN 6.2 g/dL (6.5-8.1)
[2024-06-06 11:48] LABS: TROPONIN I 0.015 ng/mL (0-0.300)
== END 2024-06-06 13:03 | disposition home or self-care (01) ==
LOC: ER 10:53
DX: E09.649 Drug or chemical induced diabetes mellitus with hypoglycemia without coma (principal); T38.3X5A Adverse effect of insulin and oral hypoglycemic [antidiabetic] drugs, initial encounter; I10 Essential (primary) hypertension; E78.5 Hyperlipidemia, unspecified; D64.9 Anemia, unspecified; Z87.19 Personal history of other diseases of the digestive system; F17.210 Nicotine dependence, cigarettes, uncomplicated
CPT/HCPCS: 36415; 71045; 80053; 82550; 82948; 83735; 84484; 85025; 85610; 85730; 93005; 99284; J2405; J2470; J7799